=== PATIENT | male | born 1975 | race Caucasian/White ===

== ENCOUNTER 2021-01-26 01:32 | Inpatient (IN) | payer MEDICAID, SELFPAY ==
[2021-01-26] VITALS (7 sets, daily range): BP systolic 98–131; BP diastolic 65–89; PULSE 96–128; RESP 16–22; TEMP 36.5–37.7; O2SAT 95–98; BMI 22.7
--- NOTE | ~2021-01-26 | CT_ITS ---
EXAMINATION: CT HEAD WITHOUT CONTRAST CLINICAL INFORMATION: Hyponatremia COMPARISON: None TECHNIQUE: Contiguous axial imaging was performed from the skull base to vertex without intravenous administration of contrast. This CT examination was performed using dose optimization techniques as appropriate, variously including the following: *Automated exposure control *Adjustment of mA and/or kV according to patient size (this includes techniques or standardized protocols for targeted exams where dose is matched to indication/reason for exam; i.e. extremities or head) *Use of iterative reconstruction technique DLP: 646 mGy-cm FINDINGS: There is no evidence of acute intracranial hemorrhage or territorial infarction. No abnormal mass effect or midline shift is seen. Barnett to white matter differentiation is well preserved. No extra-axial fluid collections are identified. The ventricles are normal in size. There is no abnormal attenuation within the brain parenchyma. The osseous structures and soft tissues are normal. Skull and ligamentous thickening within the left maxillary sinus is partially imaged. Remainder of the paranasal sinuses are clear. CT/CT head/brain wo con IMPRESSION: No acute intracranial pathology.
[2021-01-26] MEDS: diphenhydrAMINE HCL 25 MG TABLET PO (02:19)
[2021-01-26] MEDS: OLANZapine 5 MG TABLET PO (02:19)
[2021-01-26 02:31] LABS: Basophils Percent Auto 0.2 % (0-2); Eosinophils Percent Auto 0.2 % (0-4); Hemoglobin 10.3 g/dl (14.0-18.0); Imm Gran Abs Auto 0.05 X10*3/uL (0.00-0.03); Imm Gran Pct Auto 0.8 % (0.0-0.4); Lymphocytes Absolute Auto 1.3 X10*3/uL (1.2-4.9); MANUAL DIFF FLAG NO; Mean Corpuscular HGB Conc 35.5 g/dl (31.0-36.0); Mean Corpuscular Hemoglobin 30.4 pg (27.0-33.0); Mean Corpuscular Volume 85.5 fL (80-98); Mean Platelet Volume 12.2 fL (9.4-12.4); Monocytes Absolute Auto 1.1 X10*3/uL (0.1-1.2); Monocytes Percent Auto 18.7 % (2-11); Neutrophils Absolute Auto 3.6 X10*3/uL (2.0-8.3); Neutrophils Percent Auto 59.1 % (45-73); Platelet Count 102 X10*3/uL (160-400); Red Blood Count 3.39 X10*6/uL (4.60-5.80); Red Cell Distribution Width 12.9 % (11.0-16.0); SCAN SMEAR FLAG 1; White Blood Count 6.1 X10*3/uL (4.8-10.8)
[2021-01-26 02:34] LABS: Glucose Urine UA NEG (NEG); Leukocyte Esterase Urine NEG (NEG); Nitrite Urine NEG (NEG); Urine Blood TRACE (NEG); Urine Ketones 15 MG/DL (NEG); Urine Protein TRACE MG/DL (NEG-TRACE)
--- NOTE | 2021-01-26 02:35 | PC.NURSE ---
Patient's thought process and content is very delusional, patient believes he is going to through seizing, requesting for either IV or IM medication help him fall sleep, patient was advised to start with PO medication first and if it doesn't help then move to IM, agreed, provider notified/ordered Olanzapine 5 mg PO and Benadryl 25 mg, administered as ordered, patient instead swallowing medication chewed it and stated he has difficult swallowing pills. Pending medication effect, will continue to monitor.
[2021-01-26 02:38] LABS: Appearance Urine CLEAR; Color Urine DARK YELLOW
[2021-01-26 02:48] LABS: COVID-19 Test Negative (Negative)
[2021-01-26 02:52] LABS: Ethanol < 10 mg/dL
[2021-01-26 02:53] LABS: Amphetamine Screen Urine Not Detected (Not Detect); Barbiturates, Urine Not Detected (Not Detect); Benzodiazepines Screen Urine Not Detected (Not Detect); Cannabinoid Screen Urine POSITIVE (Not Detect); Cocaine Screen Urine Not Detected (Not Detect); Opiate Screen Urine Not Detected (Not Detect); Phencyclidine Screen Urine Not Detected (Not Detect)
[2021-01-26 03:05] LABS: Alanine Aminotransferase 84 U/L (0-40); Albumin Level 3.1 g/dL (3.5-5.0); Alkaline Phosphatase 73 U/L (39-117); Anion Gap 13 (12-20); Aspartate Amino Transferase 70 U/L (5-37); Bilirubin Total 1.3 mg/dL (0.0-1.0); Blood Urea Nitrogen 18 mg/dL (9-16); Calcium 7.7 mg/dL (8.4-10.2); Carbon Dioxide 26 mmol/L (22-29); Chloride 89 mmol/L (96-108); Creatinine Clr Calc Pharmacy 110.7; Estimated Glomerular Filt Rate > 60; Glucose Random 122 mg/dL (60-115); Potassium 3.7 mmol/L (3.3-5.1); Sodium 123 mmol/L (135-145); Total Protein 6.5 g/dL (6.5-8.0)
[2021-01-26 03:08] LABS: RBC Urine 0-2 /HPF (0); Squamous Epithelial Cell Urine TRACE /LPF; WBC Urine 0-2 /HPF (0-4)
[2021-01-26] MEDS: 0.9 % Sodium Chloride 1,000 ML 999 ML IV (05:44)
--- NOTE | 2021-01-26 05:47 | ED_ITS ---
HPI - General Adult General Chief complaint: Psychiatric Symptoms Stated complaint: CRISIS:AFRAID TO SLEEP,WANTS TO HURT SELF X'S 1 WK Time Seen by Provider: 01/26/21 01:37 Source: patient Mode of arrival: EMS History of Present Illness HPI narrative: 45-year-old male who is brought in via EMS after he called the police department reported the in been able to sleep for over 2 weeks and patient states that he has vague suicidal thoughts because he has not been able to sleep. Patient states that a few days ago he stop smoking and drinking and states that since that time he has been drinking ?a lot of water?. Otherwise, he denies any fever, chills, shortness of breath, chest pain/palpitations, nausea, vomiting, diarrhea but states he has been having difficulties with swallowing to the point that he is unable to accommodate solid food and has had to switch to primarily protein shakes. Patient currently denies any audiovisual hallucinations or homicidal ideation. Patient describes that he has and also noticed throat that is rising up. Otherwise he denies AVH. Related Data Home Medications Medication Instructions Recorded Confirmed No Known Home Meds 01/26/21 01/26/21 Allergies Allergy/AdvReac Type Severity Reaction Status Date / Time No Known Allergies Allergy Unverified 01/26/21 01:37 Review of Systems Review of Systems: Pertinent positives and negatives as stated in HPI 10 point review systems is otherwise negative. PMFSH Past Medical History Source: nursing notes reviewed Medical History No known health problems Social History Social History Advance Directives: No Advance Directives Information Provided: No Physical Exam Vital Signs: Vital Signs: Last Vital Signs Temp 97.7 F 01/26/21 02:28 Pulse 110 H 01/26/21 05:45 Resp 22 H 01/26/21 05:45 BP 116/73 01/26/21 05:45 Pulse Ox 98 01/26/21 05:45 Body Mass Index 22.7 VITAL SIGNS: Reviewed. GENERAL: Well developed, well nourished, anxious. HEAD: Normocephalic/atraumatic EYES: PERRLA, EOMI without nystagmus EARS: Ext canals without abnormality, TMs non-bulging and non-erythematous NOSE: Nares patent bilateral OROPHARYNX: no oral lesions noted, posterior pharynx clear, dry mucosa NECK: Supple, no adenopathy LUNGS: Normal breath sounds. No adventitious sounds or accessory muscle use. SpO2<98> CARDIOVASCULAR: Regular rate and rhythm without noted murmurs, no JVD or lower extremity edema. ABDOMEN: Soft, non-tender, non-distended with bowel sounds. MUSCULOSKELETAL: No tenderness, deformities, or effusions noted on gross inspection. EXTREMITIES: No cyanosis, clubbing or edema. SKIN: Inspection of the skin reveals no rashes NEUROLOGIC: Alert and oriented x 4. Strength and sensation to light touch were grossly intact x 4, some tremulousness. Course Course Course Narrative: 45-year-old male with history and clinical presentation initially concerning for generalized thoughts of suicidal ideation and clinically dehydrated. On review of all investigation patient noted to be hyponatremic with liver enzymes suggestive of possible underlying liver disease given patient's history of alcohol dependency. On review of patient's hyponatremia it is most consistent with impaired water excretion. Patient is noted to be tachycardic a nd it is not clear if this is due to patient's volume status, possible alcohol withdrawal, but patient is also noted to be mildly anemic. Discussed the case with inpatient hospitalist who is agreeable for admission and awaiting callback for Nephrology. Reevaluation(s) [facility]: 07:25 Medical Decision Making Lab Data Result diagrams: 01/26/21 02:24 01/26/21 02:24 Labs: Lab Results 01/26/21 01/26/21 01/26/21 Range/Units 01:57 01:58 01:58 WBC (4.8-10.8) X10*3/uL RBC (4.60-5.80) X10*6/uL Hgb (14.0-18.0) g/dl Hct (42-52) % MCV (80-98) fL MCH (27.0-33.0) pg MCHC (31.0-36.0) g/dl RDW (11.0-16.0) % Plt Count (160-400) X10*3/uL MPV (9.4-12.4) fL Immature Gran % (Auto) (0.0-0.4) % Neut % (Auto) (45-73) % Lymph % (Auto) (20-40) % [place] % (Auto) (2-11) % Eos % (Auto) (0-4) % Baso % (Auto) (0-2) % Lymph # (Auto) (1.2-4.9) X10*3/uL [place] # (Auto) (0.1-1.2) X10*3/uL Eos # (Auto) (0.0-0.4) X10*3/uL Baso # (Auto) (0.0-0.2) X10*3/uL Abs Immat Gran (auto) (0.00-0.03) X10*3/uL Absolute Neuts (auto) (2.0-8.3) X10*3/uL Absolute Nucleated RBC (0.0-0.012) X10*3/uL Nucleated RBC % (auto) (0.0-0.2) /100WBC Sodium (135-145) mmol/L Potassium (3.3-5.1) mmol/L Chloride (96-108) mmol/L Carbon Dioxide (22-29) mmol/L Anion Gap (12-20) BUN (9-16) mg/dL Creatinine (0.5-1.4) mg/dL Estim Creat Clear Calc Estimated GFR Random Glucose (60-115) mg/dL Osmolality (281-305) mosm/kg Calcium (8.4-10.2) mg/dL Total Bilirubin (0.0-1.0) mg/dL AST (5-37) U/L ALT (0-40) U/L Alkaline Phosphatase (39-117) U/L Total Protein (6.5-8.0) g/dL Albumin (3.5-5.0) g/dL Urine Color DARK YELLOW Urine Appearance CLEAR Urine pH 6.0 (5.0-8.0) Ur Specific [place] 1.020 (1.005-1.025) Urine Protein TRACE (NEG-TRACE) MG/DL Urine Glucose (UA) NEG (NEG) MG/DL Urine Ketones 15 (NEG) MG/DL Urine Blood TRACE (NEG) Urine Nitrite NEG (NEG) Ur Leukocyte Esterase NEG (NEG) Urine RBC 0-2 (0) /HPF Urine WBC 0-2 (0-4) /HPF Ur Squamous Epith Cells TRACE /LPF Urine Bacteria NONE /LPF Urine Osmolality (373-1093) mosm/kg Ur Random Sodium mmol/L Urine Opiates Screen Not Detected (Not Detect) Ur Barbiturates Screen Not Detected (Not Detect) Ur Phencyclidine Scrn Not Detected (Not Detect) Ur Amphetamines Screen Not Detected (Not Detect) U Benzodiazepines Scrn Not Detected (Not Detect) Urine Cocaine Screen Not Detected (Not Detect) U Marijuana (THC) Screen POSITIVE H (Not Detect) Ethyl Alcohol mg/dL COVID-19 (GABY) Negative (Negative) COVID-19 Clin Com See Note 01/26/21 01/26/21 01/26/21 Range/Units 01:58 01:58 02:24 WBC 6.1 (4.8-10.8) X10*3/uL RBC 3.39 L (4.60-5.80) X10*6/uL Hgb 10.3 L (14.0-18.0) g/dl Hct 29.0 L (42-52) % MCV 85.5 (80-98) fL MCH 30.4 (27.0-33.0) pg MCHC 35.5 (31.0-36.0) g/dl RDW 12.9 (11.0-16.0) % Plt Count 102 L (160-400) X10*3/uL MPV 12.2 (9.4-12.4) fL Immature Gran % (Auto) 0.8 H (0.0-0.4) % Neut % (Auto) 59.1 (45-73) % Lymph % (Auto) 21.0 (20-40) % [place] % (Auto) 18.7 H (2-11) % Eos % (Auto) 0.2 (0-4) % Baso % (Auto) 0.2 (0-2) % Lymph # (Auto) 1.3 (1.2-4.9) X10*3/uL [place] # (Auto) 1.1 (0.1-1.2) X10*3/uL Eos # (Auto) 0.0 (0.0-0.4) X10*3/uL Baso # (Auto) 0.0 (0.0-0.2) X10*3/uL Abs Immat Gran (auto) 0.05 H (0.00-0.03) X10*3/uL Absolute Neuts (auto) 3.6 (2.0-8.3) X10*3/uL Absolute Nucleated RBC 0.000 (0.0-0.012) X10*3/uL Nucleated RBC % (auto) 0.0 (0.0-0.2) /100WBC Sodium (135-145) mmol/L Potassium (3.3-5.1) mmol/L Chloride (96-108) mmol/L Carbon Dioxide (22-29) mmol/L Anion Gap (12-20) BUN (9-16) mg/dL Creatinine (0.5-1.4) mg/dL Estim Creat Clear Calc Estimated GFR Random Glucose (60-115) mg/dL Osmolality (281-305) mosm/kg Calcium (8.4-10.2) mg/dL Total Bilirubin (0.0-1.0) mg/dL AST (5-37) U/L ALT (0-40) U/L Alkaline Phosphatase (39-117) U/L Total Protein (6.5-8.0) g/dL Albumin (3.5-5.0) g/dL Urine Color Urine Appearance Urine pH (5.0-8.0) Ur Specific [place] (1.005-1.025) Urine Protein (NEG-TRACE) MG/DL Urine Glucose (UA) (NEG) MG/DL Urine Ketones (NEG) MG/DL Urine Blood (NEG) Urine Nitrite (NEG) Ur Leukocyte Esterase (NEG) Urine RBC (0) /HPF Urine WBC (0-4) /HPF Ur Squamous Epith Cells /LPF Urine Bacteria /LPF Urine Osmolality 557 (373-1093) mosm/kg Ur Random Sodium < 20.0 mmol/L Urine Opiates Screen (Not Detect) Ur Barbiturates Screen (Not Detect) Ur Phencyclidine Scrn (Not Detect) Ur Amphetamines Screen (Not Detect) U Benzodiazepines Scrn (Not Detect) Urine Cocaine Screen (Not Detect) U Marijuana (THC) Screen (Not Detect) Ethyl Alcohol mg/dL COVID-19 (GABY) (Negative) COVID-19 Clin Com 01/26/21 01/26/21 01/26/21 Range/Units 02:24 02:24 02:24 WBC (4.8-10.8) X10*3/uL RBC (4.60-5.80) X10*6/uL Hgb (14.0-18.0) g/dl Hct (42-52) % MCV (80-98) fL MCH (27.0-33.0) pg MCHC (31.0-36.0) g/dl RDW (11.0-16.0) % Plt Count (160-400) X10*3/uL MPV (9.4-12.4) fL Immature Gran % (Auto) (0.0-0.4) % Neut % (Auto) (45-73) % Lymph % (Auto) (20-40) % [place] % (Auto) (2-11) % Eos % (Auto) (0-4) % Baso % (Auto) (0-2) % Lymph # (Auto) (1.2-4.9) X10*3/uL [place] # (Auto) (0.1-1.2) X10*3/uL Eos # (Auto) (0.0-0.4) X10*3/uL Baso # (Auto) (0.0-0.2) X10*3/uL Abs Immat Gran (auto) (0.00-0.03) X10*3/uL Absolute Neuts (auto) (2.0-8.3) X10*3/uL Absolute Nucleated RBC (0.0-0.012) X10*3/uL Nucleated RBC % (auto) (0.0-0.2) /100WBC Sodium 123 L (135-145) mmol/L Potassium 3.7 (3.3-5.1) mmol/L Chloride 89 L (96-108) mmol/L Carbon Dioxide 26 (22-29) mmol/L Anion Gap 13 (12-20) BUN 18 H (9-16) mg/dL Creatinine 0.80 (0.5-1.4) mg/dL Estim Creat Clear Calc 110.7 Estimated GFR > 60 Random Glucose 122 H (60-115) mg/dL Osmolality 258 L (281-305) mosm/kg Calcium 7.7 L (8.4-10.2) mg/dL Total Bilirubin 1.3 H (0.0-1.0) mg/dL AST 70 H (5-37) U/L ALT 84 H (0-40) U/L Alkaline Phosphatase 73 (39-117) U/L Total Protein 6.5 (6.5-8.0) g/dL Albumin 3.1 L (3.5-5.0) g/dL Urine Color Urine Appearance Urine pH (5.0-8.0) Ur Specific [place] (1.005-1.025) Urine Protein (NEG-TRACE) MG/DL Urine Glucose (UA) (NEG) MG/DL Urine Ketones (NEG) MG/DL Urine Blood (NEG) Urine Nitrite (NEG) Ur Leukocyte Esterase (NEG) Urine RBC (0) /HPF Urine WBC (0-4) /HPF Ur Squamous Epith Cells /LPF Urine Bacteria /LPF Urine Osmolality (373-1093) mosm/kg Ur Random Sodium mmol/L Urine Opiates Screen (Not Detect) Ur Barbiturates Screen (Not Detect) Ur Phencyclidine Scrn (Not Detect) Ur Amphetamines Screen (Not Detect) U Benzodiazepines Scrn (Not Detect) Urine Cocaine Screen (Not Detect) U Marijuana (THC) Screen (Not Detect) Ethyl Alcohol < 10 mg/dL COVID-19 (GABY) (Negative) COVID-19 Clin Com Discharge Plan Discharge Clinical Impression: Hyponatremia, Psychosis Patient Disposition: Admitted As Inpatient
[2021-01-26] MEDS: 0.9 % Sodium Chloride 1,000 ML 80 ML IVCONT (05:52)
[2021-01-26 06:04] LABS: Osmolality Urine 557 mosm/kg (373-1093)
[2021-01-26 06:05] LABS: Osmolality, Serum 258 mosm/kg (281-305)
[2021-01-26 07:47] LABS: Sodium Urine Random < 20.0 mmol/L
--- NOTE | 2021-01-26 07:50 | PHA.MEDREC ---
Pharmacy Consult ? Medication Reconciliation Pharmacy has completed the medication reconciliation.
--- NOTE | 2021-01-26 08:57 | PM.IMHP ---
History of Present Illness Date of Service: 01/26/21 Chief Complaint: insomonia, SI 45 year old male with chronic alcohol depedency who says that he stop drinking about a week ago, altugh at some point he says 4 days ago. He has been having trouble sleeping for about week and becoming agitated, hypervigilent and has had suicidal thought. He says during that time perioids he has been drinking water incesantly. Lab work show sodium of 123 and started on normal saline, he's anemic but denies melana or hematochezia. Review of Systems Review of Systems: Gen: no fever Resp: no sob, no cough CV: no chest, no VINCENT, no leg edema GI: No n/v, no abd pain Neuro: No confusion Psych: insominia, hypervigilenc Yes all other systems are reviewed and are negative ON LICENSE OF [facility] Medical History (Updated 01/26/21 @ 09:02 by Pipe Trejo MD) Alcohol dependence No known health problems Social History (Updated 01/26/21 @ 09:03 by Pipe Trejo MD) Alcohol intake: current Patient Tobacco Use Status: Former Tobacco user Use of substances other than those prescribed or required for medical reasons: No Substance Use Type: Marijuana Substance Use Frequency: Daily Advance Directives: No Advance Directives Information Provided: No Meds Allergies Allergy/AdvReac Type Severity Reaction Status Date / Time No Known Allergies Allergy Unverified 01/26/21 01:37 Active Medications: Current Medications Generic Name Dose Route Start Last Admin Trade Name Freq PRN Reason Stop Dose Admin Acetaminophen 650 mg 01/26/21 08:50 Acetaminophen 325 Mg Tablet PO Q6H PRN Pain, Mild (Pain Scale 1-3) Sodium Chloride 1,000 mls @ 80 mls/hr 01/26/21 06:00 01/26/21 05:52 Ns IVCONT 80 mls/hr .[id number] GISEL Administration Medication 1 each 01/26/21 09:00 No Benzodiazepines MISCELLANE DAILY GISEL Ondansetron HCl 4 mg 01/26/21 08:50 Ondansetron Hcl 4 Mg/2 Ml Vial IVPUSH Q8H PRN Nausea and Vomiting Pharmacy Consult 1 each 01/26/21 07:06 Consult Rx Perform Med Rec MISCELLANE ONCE PRN Consult order Pharmacy Consult 1 each 01/26/21 08:49 Consult Rx Etoh Phenob Dosing MISCELLANE 01/26/21 08:50 ONCE ONE Protocol Phenobarbital Sodium 210 mg 01/26/21 09:00 Phenobarbital Sodium 130 Mg/Ml Vial IM 01/26/21 09:01 ONCE ONE Protocol Sodium Chloride 3 ml 01/26/21 16:00 0.9 % Sodium Chloride Flush 3 Ml [facility] Home Medications Medication Instructions Recorded Confirmed Last Taken Type No Known Home Meds 01/26/21 01/26/21 Unknown History Physical Exam Vital Signs and Narrative: Vital Signs: Last Vital Signs Temp 97.7 F 01/26/21 02:28 Pulse 110 H 01/26/21 05:45 Resp 22 H 01/26/21 05:45 BP 116/73 01/26/21 05:45 Pulse Ox 98 01/26/21 05:45 Body Mass Index 22.7 Const: Other: Constitutional Awake and Alert, No apparent distress Neck Supple, No lymphadenopathy Cardiovascular RRR, No M/R/G, S1 S2, No S3 S4, No pedal edema Respiratory Lungs clear, No respiratory distress Gastrointestinal Non tender, Non-distended Skin No rash Neurological Alert & oriented x3 Psychological hypervigilence, no hallucination, Denies SI to me Results Labs CBC and Chem 7: 01/26/21 02:24 01/26/21 11:19 Labs: Laboratory Results - last 24 hr 01/26/21 01/26/21 01/26/21 01:57 01:58 01:58 MCV MCH MCHC RDW Plt Count MPV Immature Gran % (Auto) Neut % (Auto) Lymph % (Auto) [place] % (Auto) Eos % (Auto) Baso % (Auto) Lymph # (Auto) [place] # (Auto) Eos # (Auto) Baso # (Auto) Abs Immat Gran (auto) Absolute Neuts (auto) Absolute Nucleated RBC Nucleated RBC % (auto) Anion Gap Estim Creat Clear Calc Estimated GFR Random Glucose Osmolality Calcium Total Bilirubin AST ALT Alkaline Phosphatase Total Protein Albumin Urine Color DARK YELLOW Urine Appearance CLEAR Urine pH 6.0 Ur Specific [place] 1.020 Urine Protein TRACE Urine Glucose (UA) NEG Urine Ketones 15 Urine Blood TRACE Urine Nitrite NEG Ur Leukocyte Esterase NEG Urine RBC 0-2 Urine WBC 0-2 Ur Squamous Epith Cells TRACE Urine Bacteria NONE Urine Osmolality Ur Random Sodium Urine Opiates Screen Not Detected Ur Barbiturates Screen Not Detected Ur Phencyclidine Scrn Not Detected Ur Amphetamines Screen Not Detected U Benzodiazepines Scrn Not Detected Urine Cocaine Screen Not Detected U Marijuana (THC) Screen POSITIVE H Ethyl Alcohol COVID-19 (GABY) Negative COVID-19 Clin Com See Note 01/26/21 01/26/21 01/26/21 01:58 01:58 02:24 MCV 85.5 MCH 30.4 MCHC 35.5 RDW 12.9 Plt Count 102 L MPV 12.2 Immature Gran % (Auto) 0.8 H Neut % (Auto) 59.1 Lymph % (Auto) 21.0 [place] % (Auto) 18.7 H Eos % (Auto) 0.2 Baso % (Auto) 0.2 Lymph # (Auto) 1.3 [place] # (Auto) 1.1 Eos # (Auto) 0.0 Baso # (Auto) 0.0 Abs Immat Gran (auto) 0.05 H Absolute Neuts (auto) 3.6 Absolute Nucleated RBC 0.000 Nucleated RBC % (auto) 0.0 Anion Gap Estim Creat Clear Calc Estimated GFR Random Glucose Osmolality Calcium Total Bilirubin AST ALT Alkaline Phosphatase Total Protein Albumin Urine Color Urine Appearance Urine pH Ur Specific [place] Urine Protein Urine Glucose (UA) Urine Ketones Urine Blood Urine Nitrite Ur Leukocyte Esterase Urine RBC Urine WBC Ur Squamous Epith Cells Urine Bacteria Urine Osmolality 557 Ur Random Sodium < 20.0 Urine Opiates Screen Ur Barbiturates Screen Ur Phencyclidine Scrn Ur Amphetamines Screen U Benzodiazepines Scrn Urine Cocaine Screen U Marijuana (THC) Screen Ethyl Alcohol COVID-19 (GABY) COVID-19 Clin Com 01/26/21 01/26/21 01/26/21 02:24 02:24 02:24 MCV MCH MCHC RDW Plt Count MPV Immature Gran % (Auto) Neut % (Auto) Lymph % (Auto) [place] % (Auto) Eos % (Auto) Baso % (Auto) Lymph # (Auto) [place] # (Auto) Eos # (Auto) Baso # (Auto) Abs Immat Gran (auto) Absolute Neuts (auto) Absolute Nucleated RBC Nucleated RBC % (auto) Anion Gap 13 Estim Creat Clear Calc 110.7 Estimated GFR > 60 Random Glucose 122 H Osmolality 258 L Calcium 7.7 L Total Bilirubin 1.3 H AST 70 H ALT 84 H Alkaline Phosphatase 73 Total Protein 6.5 Albumin 3.1 L Urine Color Urine Appearance Urine pH Ur Specific [place] Urine Protein Urine Glucose (UA) Urine Ketones Urine Blood Urine Nitrite Ur Leukocyte Esterase Urine RBC Urine WBC Ur Squamous Epith Cells Urine Bacteria Urine Osmolality Ur Random Sodium Urine Opiates Screen Ur Barbiturates Screen Ur Phencyclidine Scrn Ur Amphetamines Screen U Benzodiazepines Scrn Urine Cocaine Screen U Marijuana (THC) Screen Ethyl Alcohol < 10 COVID-19 (GABY) COVID-19 Clin Com Imaging Radiologist's Impressions: Impressions Head CT 01/26/21 06:06 IMPRESSION: No acute intracranial pathology. 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 underlying Psychosis--MARIANA Abdi, Psych eval when medically stable low risk for DVT, ambulate Quality Stroke Does the patient have a stroke diagnosis?: No VTE Prior VTE?: No VTE Risk Level:: Medical - low VTE Device Contraindication: N/A - Device Ordered VTE Drug Contraindication: N/A - Med Ordered
[2021-01-26 09:10] LABS: Magnesium 2.2 mg/dL (1.6-2.6)
--- NOTE | 2021-01-26 09:10 | MHC.CARE ---
Please consult CARE Team once pt is medically cleared and ready for discharge or transfer. CARE Team will conduct assessment or refer to [facility]N as appropriate.
[2021-01-26 09:52] LABS: Thyroid Stimulating Hormone 1.02 uIU/mL (0.32-4.0)
[2021-01-26] MEDS: Folic Acid 1 MG TABLET PO (10:07)
[2021-01-26] MEDS: Thiamine HCL 500 MG in 0.9 % Sodium Chloride 100 ML 210 MG IV (10:09)
[2021-01-26] MEDS: PHENobarbitaL sodium 130 MG/ML VIAL 210 MG IM (10:11)
[2021-01-26 10:18] LABS: Vitamin B12 1722 pg/mL (200-900)
[2021-01-26 10:54] LABS: Anion Gap 11 (12-20); Carbon Dioxide 25 mmol/L (22-29); Chloride 98 mmol/L (96-108); Potassium 4.4 mmol/L (3.3-5.1); Sodium 130 mmol/L (135-145)
[2021-01-26 11:53] LABS: Anion Gap 10 (12-20); Carbon Dioxide 28 mmol/L (22-29); Chloride 96 mmol/L (96-108); Potassium 4.1 mmol/L (3.3-5.1); Sodium 130 mmol/L (135-145)
[2021-01-26] MEDS: PHENobarbitaL sodium 130 MG/ML VIAL 157 MG IM ×2 (12:07→21:07)
--- NOTE | 2021-01-26 12:15 | PM.EVENT ---
Event Note Date of Service: 01/26/21 Event Note: Pt seen and examined in the ER Hyponatremia _ Euvolemic - ? Multifactorial ? SIADH ( Low U Na not c/w SIADH but + ? Excess Free water intake ) TSH normal Will check Cortisol Level in AM Fluid restriction D/c IVF as NA is 130 x 2 now Will start D5W 100 ml x 5000 ml Na level Q 6 hrly x 24 hrs Normal Na diet thx
--- NOTE | 2021-01-26 13:10 | PC.NURSE ---
called pharmacy to clarify the dextrose 5% order because the current order states to infuse 1000ml over 10hr but on the side it also states 500ml, and when scanning the 1000ml it says its over 500ml. pharmacy reached out dr soto's office to clarify the order. awaiting a call back from pharmacy
[2021-01-26] MEDS: Dextrose 5 % 500 ML 100 ML IVCONT (15:37)
--- NOTE | 2021-01-26 16:10 | PC.NURSE ---
pt has been refusing the second phenobarbital injection, mom and dad at bedside
[2021-01-26 16:34] LABS: Anion Gap 10 (12-20); Carbon Dioxide 27 mmol/L (22-29); Chloride 96 mmol/L (96-108); Sodium 129 mmol/L (135-145)
[2021-01-26] MEDS: 0.9 % Sodium Chloride Flush 3 ML SYRINGE IVFLUSH ×2 (16:51→23:54)
--- NOTE | 2021-01-26 17:11 | CONS_ITS ---
DATE OF SERVICE: REASON FOR CONSULTATION: Consult requested by the ER team to evaluate and help in management of patient with hyponatremia. HISTORY OF PRESENT ILLNESS: The patient is a 45-year-old male with chronic alcohol dependency, who stated he stopped drinking about a week ago, although it is unclear when he stopped, who has been having trouble sleeping for about a week and became agitated, hypervigilant, and a suicidal thought. He has been drinking free water significantly as he felt that there was some obstructive symptoms in the throat. His lab work showed his sodium level was 123 and started on normal saline. He was anemic, but denied any melena or hematochezia. He does not take any medication at home and has no urinary symptoms. There is no GI fluid losses like diarrhea, nausea, or vomiting. There is no cough, chest pain, palpitation. A head CT was done, which was negative for any acute changes in the ER. REVIEW OF SYSTEMS: As noted above. Other systems were reviewed and negative. PAST MEDICAL HISTORY: History of alcohol dependence. No other health problems. SOCIAL HISTORY: The patient is a current alcohol user. As mentioned before, he stopped about a week ago. Currently a smoker. ALLERGIES: THE PATIENT HAS NO KNOWN DRUG ALLERGIES. PHYSICAL EXAMINATION: GENERAL: The patient is resting in the ER bed. Awake, alert, oriented x3. VITAL SIGNS: Blood pressure was 116/73, pulse 110, afebrile. HEENT: Shows pupils equal bilaterally and reactive to light. No jugular venous distention is noted. NECK: Supple. No thyromegaly is noted. Mucosa moist. There is no scleral icterus or conjunctival congestion. CARDIOVASCULAR SYSTEM: S1, S2 without rub. RESPIRATORY SYSTEM: Air entry good bilaterally. No crepitation or rhonchi is noted. ABDOMEN: Soft, nontender. No guarding. No rigidity. Bowel sounds normal. EXTREMITIES: Showed no edema. There is no peripheral cyanosis or clubbing. NEURO: Essentially nonfocal. LABORATORY DATA: Labs done today. Urinalysis, clear urine, specific gravity 1.020, protein trace, glucose negative, rbc's and wbc's were negative. Urine osmolality was 557. Urine sodium was less than 20. Serum sodium was 123, potassium 3.7, chloride 89, CO2 of 26, BUN 18, creatinine 0.8, glucose is 122. Serum osmolality 258. Albumin 3.1. Repeat sodium done was 130. Urine tox screen, marijuana was positive and alcohol was less than 10. IMPRESSION: 1. A 45-year-old male with hyponatremia. He has neurological symptoms associated with hyponatremia given confusion. He has hypo-osmolar hyponatremia. 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 It is unclear if this is worsened by low solute diet and increase free water intake as he stopped drinking alcohol and had some throat issues, which caused him to drink more free water. TSH is normal and need to rule out thyroid disease. 2. Anemia. 3. Alcohol withdrawal. RECOMMENDATIONS: At this juncture, I recommend fluid restriction of 1.5 L per day. His sodium level has increased rapidly to 130 and I have taken the liberty to discontinue his IV fluids/normal saline. I have initiated the patient on D5 water at 100 mL/hour times 500 mL with a repeat sodium level in a few hours. I recommend correcting not more than 6 to 8 mEq over a period of 24 hours. Given neurological symptoms, 4 mEq can be corrected rapidly, but after that, we need to be cautious. I recommend doing the serum sodium levels every 6 hours on this patient. Thank you for allowing me to participate in the medical management of the patient. MD LILLIAN Kendall/GABINO / [phone]
--- NOTE | 2021-01-26 18:15 | PC.NURSE ---
pt is currently asleep, respirations even and unlabored
--- NOTE | 2021-01-26 20:01 | PC.NURSE ---
REPORT TAKEN FROM NICKY WHITTAKER FIRST CONTACTWITH PT. SITTING UP IN BED SKIN PWD RESPIRATIONS EVEN UNLABORED. A&Ox4, SLIGHTLY HYPERVERBAL YET PLEASANT AND AGREEABLE WITH CARE. SINUS TACH ON MONITOR. NEW IV ACCESS OBTAINED DUE TO PT CONTINUALLY BENDING LEFT ELBOW OCCLUDING CONTINUOUS INFUSION. CALL TO PHARMACY FOR REASSESSMENT OF PHENOBARB PROTOCOL DUE TO LAST DOSE NOT ADMINISTERED BY PREVIOUS RN.
[2021-01-27 07:06] VITALS: BP 105/71; PULSE 104; RESP 18; TEMP 36.4; O2SAT 94
[2021-01-27 08:30] LABS: Hematocrit 27.7 % (42-52); Hemoglobin 9.4 g/dl (14.0-18.0); Mean Corpuscular HGB Conc 33.9 g/dl (31.0-36.0); Mean Corpuscular Volume 88.5 fL (80-98); Mean Platelet Volume 11.3 fL (9.4-12.4); Platelet Count 132 X10*3/uL (160-400); Red Blood Count 3.13 X10*6/uL (4.60-5.80); Red Cell Distribution Width 13.5 % (11.0-16.0); White Blood Count 5.5 X10*3/uL (4.8-10.8)
[2021-01-27 08:45] LABS: Magnesium 2.3 mg/dL (1.6-2.6)
[2021-01-27] MEDS: PHENobarbitaL 15 MG TABLET 45 MG PO ×2 (09:15→20:39)
[2021-01-27] MEDS: Folic Acid 1 MG TABLET PO (09:15)
[2021-01-27] MEDS: Thiamine HCL 100 MG TABLET PO (09:16)
[2021-01-27] MEDS: 0.9 % Sodium Chloride Flush 3 ML SYRINGE IVFLUSH ×3 (09:16→20:39)
--- NOTE | 2021-01-27 10:14 | MHC.CM.PN ---
met with pt who has a siitter dc plan is home with a referral to care team for his etoh abuse
[2021-01-27 10:29] LABS: Anion Gap 12 (12-20); Blood Urea Nitrogen 13 mg/dL (9-16); Calcium 7.3 mg/dL (8.4-10.2); Carbon Dioxide 26 mmol/L (22-29); Chloride 94 mmol/L (96-108); Creatinine Clr Calc Pharmacy 97.3; Estimated Glomerular Filt Rate > 60; Glucose Random 157 mg/dL (60-115); Potassium 3.8 mmol/L (3.3-5.1); Sodium 128 mmol/L (135-145)
--- NOTE | 2021-01-27 11:03 | PM.PNNEP ---
Subjective Subjective Date of Service: 01/27/21 Interval history: pt feels better Less anxious Physical Exam Vital Signs: Vital Signs: Last Vital Signs Temp 97.6 F 01/27/21 07:06 Pulse 104 H 01/27/21 07:06 Resp 18 01/27/21 07:06 BP 105/71 01/27/21 07:06 Pulse Ox 94 01/27/21 07:06 Body Mass Index 22.7 VITAL SIGNS: Reviewed. GENERAL: Well developed, well nourished, anxious. HEAD: Normocephalic/atraumatic EYES: PERRLA, EOMI without nystagmus EARS: Ext canals without abnormality, TMs non-bulging and non-erythematous NOSE: Nares patent bilateral OROPHARYNX: no oral lesions noted, posterior pharynx clear, dry mucosa NECK: Supple, no adenopathy LUNGS: Normal breath sounds. No adventitious sounds or accessory muscle use. SpO2<98> CARDIOVASCULAR: Regular rate and rhythm without noted murmurs, no JVD or lower extremity edema. ABDOMEN: Soft, non-tender, non-distended with bowel sounds. MUSCULOSKELETAL: No tenderness, deformities, or effusions noted on gross inspection. EXTREMITIES: No cyanosis, clubbing or edema. SKIN: Inspection of the skin reveals no rashes NEUROLOGIC: Alert and oriented x 4. Strength and sensation to light touch were grossly intact x 4, some tremulousness. Objective Data Labs CBC & Chem 7: 01/27/21 07:56 01/27/21 09:57 Labs: Laboratory Results - last 24 hr 01/26/21 01/26/21 01/27/21 11:19 16:00 07:56 WBC 5.5 RBC 3.13 L Hgb 9.4 L Hct 27.7 L MCV 88.5 MCH 30.0 MCHC 33.9 RDW 13.5 Plt Count 132 L D MPV 11.3 Absolute Nucleated RBC 0.000 Nucleated RBC % (auto) 0.0 Sodium 130 L 129 L Potassium 4.1 4.0 Chloride 96 96 Carbon Dioxide 28 27 Anion Gap 10 L 10 L BUN Creatinine Estim Creat Clear Calc Estimated GFR Random Glucose Calcium Magnesium 01/27/21 01/27/21 07:56 09:57 WBC RBC Hgb Hct MCV MCH MCHC RDW Plt Count MPV Absolute Nucleated RBC Nucleated RBC % (auto) Sodium 128 L Potassium 3.8 Chloride 94 L Carbon Dioxide 26 Anion Gap 12 BUN 13 Creatinine 0.91 Estim Creat Clear Calc 97.3 Estimated GFR > 60 Random Glucose 157 H Calcium 7.3 L Magnesium 2.3 Procedures Date of Service Date of Service: 01/27/21 Assessment & Plan Time Spent With Patient Time: IMPRESSION:? 1. A 45-year-old male with hyponatremia.? He has neurological symptoms associated with hyponatremia given confusion.? He has hypo-osmolar hyponatremia.? Urine osmolality is inappropriately concentrated for serum osmolality and serum sodium + this is worsened by low solute diet and increase free water intake as he stopped drinking alcohol and had some throat issues, which caused him to drink more free water.? TSH is normal and cortisol is pending 2. Anemia. 3. Alcohol withdrawal. ? RECOMMENDATIONS:? Continue fluid restriction of 1.5 L per day.? His sodium level has increased appropriately Avoid alcohol - d/w pt NACL tabs 1 G TID ordered x 3 doses ? I recommend doing the serum sodium levels every 12 hours x 24 hrs F/u Cortisol level ?D/w Medical team Thank you for allowing me to participate in the medical management of the patient. Total time spent is greater than 50% in coordination of care (as documented) at patient's floor/unit and/or counseling patient: Progress Note: Quality Stroke Does the patient have a stroke diagnosis?: No
[2021-01-27 11:20] VITALS: BP 108/64; PULSE 99; RESP 16; TEMP 36.6; O2SAT 97
--- NOTE | 2021-01-27 12:53 | P.CDIC_ITS ---
CDI Concurrent Query Service Date: 01/28/21 Documentation Clarification: Please clarify if you are treating a proba ble/suspected/likely or confirmed: known or suspected type of the documented encephalopathy: - Metabolic - Septic - Toxic - Toxic metabolic - Hypertensive - Anoxic - Alcoholic - Hepatic (reported as hepatic failure and needs further specificity as to acute, subacute, or chronic) - Due to a specified condition (such as UTI, hyponatremia, CVA, etc.) - Other (please specify): - Unable to determine Provider Response: Other Other Diagnosis: No encephalopathy PLEASE DO NOT DELETE/MODIFY EXISTING CONTENT Additional information is needed in order to code to the highest accuracy and appropriate Severity of Illness (SOI). Please clarify the information noted below in your progress notes and discharge summary. Risk Factors/Clinical Indicators/Treatments Per progress note 12/2820: he has neurological symptoms associated with hyponatremia given confusion Per H&P: Suicide ideation/? underlying psychosis CDS: Holly Gold RN Contact Number: [phone] Please Review the information above and exercise your independent professional judgment in responding to the query. If you concur, pleas document in the PROGRESS NOTES and DISCHARGE SUMMARY. If you do not agree with the query, please document in the query above. THIS QUERY IS PART OF THE PERMANENT MEDICAL RECORD
[2021-01-27] MEDS: Sodium Chloride Tab 1 GM TABLET PO ×2 (14:31→20:39)
[2021-01-27 15:25] VITALS: BP 90/68; PULSE 105; RESP 18; TEMP 37.1; O2SAT 97
[2021-01-27 16:08] VITALS: BP 103/60
[2021-01-27 23:02] VITALS: BP 98/62; PULSE 108; RESP 18; TEMP 36.5; O2SAT 95
[2021-01-28 07:19] VITALS: BP 110/66; PULSE 99; RESP 18; TEMP 37; O2SAT 97
[2021-01-28] MEDS: Sodium Chloride Tab 1 GM TABLET PO ×2 (08:40→14:11)
[2021-01-28] MEDS: Folic Acid 1 MG TABLET PO (08:40)
[2021-01-28] MEDS: PHENobarbitaL 15 MG TABLET 45 MG PO (08:41)
[2021-01-28] MEDS: Thiamine HCL 100 MG TABLET PO (08:41)
[2021-01-28] MEDS: 0.9 % Sodium Chloride Flush 3 ML SYRINGE IVFLUSH (08:42)
[2021-01-28 09:29] LABS: Anion Gap 9 (12-20); Blood Urea Nitrogen 14 mg/dL (9-16); Calcium 7.6 mg/dL (8.4-10.2); Carbon Dioxide 27 mmol/L (22-29); Chloride 98 mmol/L (96-108); Creatinine Clr Calc Pharmacy 104.2; Estimated Glomerular Filt Rate > 60; Glucose Random 140 mg/dL (60-115); Potassium 3.9 mmol/L (3.3-5.1); Sodium 130 mmol/L (135-145)
--- NOTE | 2021-01-28 09:51 | HO.PM.IMPN ---
Subjective Subjective Date of Service: 01/28/21 Interval History: Feels better, No SI, sodium 130 Review of Systems Gen: no fever Resp: no sob, no cough CV: no chest, no VINCENT, no leg edema GI: No n/v, no abd pain Neuro: No confusion Psych: insominia, hypervigilenc Physical Exam Vital Signs: Vital Signs: Last Vital Signs Temp 98.6 F 01/28/21 07:19 Pulse 99 01/28/21 07:19 Resp 18 01/28/21 07:19 BP 110/66 01/28/21 07:19 Pulse Ox 97 01/28/21 07:19 Body Mass Index 22.7 Const: Other: Constitutional Awake and Alert, No apparent distress Neck Supple, No lymphadenopathy Cardiovascular RRR, No M/R/G, S1 S2, No S3 S4, No pedal edema Respiratory Lungs clear, No respiratory distress Gastrointestinal Non tender, Non-distended Skin No rash Neurological Alert & oriented x3 Psychological hypervigilence, no hallucination, Denies SI to me Objective Data Current Medications Generic Name Dose Route Start Last Admin Trade Name Freq PRN Reason Stop Dose Admin Acetaminophen 650 mg 01/26/21 08:50 Acetaminophen 325 Mg Tablet PO Q6H PRN Pain, Mild (Pain Scale 1-3) Medication 1 each 01/26/21 09:00 No Benzodiazepines MISCELLANE DAILY GISEL Ondansetron HCl 4 mg 01/26/21 08:50 Ondansetron Hcl 4 Mg/2 Ml Vial IVPUSH Q8H PRN Nausea and Vomiting Pharmacy Consult 1 each 01/26/21 07:06 Consult Rx Perform Med Rec MISCELLANE ONCE PRN Consult order Phenobarbital 45 mg 01/27/21 09:00 01/28/21 08:41 Phenobarbital 15 Mg Tablet PO 01/28/21 21:01 45 mg BID GISEL Administration Protocol Phenobarbital 30 mg 01/29/21 09:00 Phenobarbital 30 Mg Tablet PO 01/30/21 21:01 BID GISEL Protocol Phenobarbital 15 mg 01/31/21 09:00 Phenobarbital 15 Mg Tablet PO 02/01/21 09:01 DAILY GISEL Protocol Sodium Chloride 3 ml 01/26/21 16:00 01/28/21 08:42 0.9 % Sodium Chloride Flush 3 Ml Syringe IVFLUSH 3 ml QSHIFT GISEL Administration Thiamine HCl 100 mg 01/27/21 09:00 01/28/21 08:41 Thiamine Hcl 100 Mg Tablet PO 01/29/21 09:01 100 mg DAILY GISEL Administration Labs CBC & Chem 7: 01/27/21 07:56 01/28/21 08:50 Labs: Laboratory Results - last 24 hr 01/26/21 01/26/21 01/26/21 02:24 10:16 11:19 Sodium 123 L 130 L 130 L Anion Gap Estim Creat Clear Calc Estimated GFR Random Glucose Calcium 01/26/21 01/27/21 01/28/21 16:00 09:57 08:50 Sodium 129 L 128 L 130 L Anion Gap 12 9 L Estim Creat Clear Calc 97.3 104.2 Estimated GFR > 60 > 60 Random Glucose 157 H 140 H Calcium 7.3 L 7.6 L Assessment and Plan (1) Psychosis: Status: Acute Assessment and Plan: 45 year male with alcohol dependency here with 1/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 underlying Psychosis--SitMARIANA nuñez, Psych eval when medically stable, denies SIMARIANA eval low risk for DVT, ambulate Quality Stroke Does the patient have a stroke diagnosis?: No VTE Prior VTE?: No VTE Risk Level:: Medical - low VTE Device Contraindication: N/A - Device Ordered VTE Drug Contraindication: N/A - Med Ordered
--- NOTE | 2021-01-28 09:55 | PM.DS ---
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 Treated with IV NS, fluid restriction and salt tablet under supervision of nephrology. Sodium is now 130 up from 123 on admission 3 days earlier. He understand not to drink to much water 2/anemia--likely related to alcohol, can have gastritis-B12, folate normal, tsh normal. Given PPI 3/Alcohol withdrawal--Phenobarbital, folic acid, thiamine, not actively withdrawing, advised to stop drinking. and follow up with outpatient program CARE team consulted 4/SI ? underlying Psychosis--MARIANA Abdi, Psych eval when medically stable, denies MARIANA CHIRS to see. Time Spent with Patient Time attestation: Total time spent providing and/or coordinating discharge services: Discharge coordination time: Greater than 30 minutes Quality: Stroke Does the patient have a stroke diagnosis?: No Physical Exam Vital Signs: Vital Signs: Last Vital Signs Temp 98.6 F 01/28/21 07:19 Pulse 99 01/28/21 07:19 Resp 18 01/28/21 07:19 BP 110/66 01/28/21 07:19 Pulse Ox 97 01/28/21 07:19 Body Mass Index 22.7 DS: Data Data Completed and Pending Labs on day of discharge: Laboratory Results - last 24 hr 01/27/21 01/28/21 09:57 08:50 Sodium 128 L 130 L Potassium 3.8 3.9 Chloride 94 L 98 Carbon Dioxide 26 27 Anion Gap 12 9 L BUN 13 14 Creatinine 0.91 0.85 Estim Creat Clear Calc 97.3 104.2 Estimated GFR > 60 > 60 Random Glucose 157 H 140 H Calcium 7.3 L 7.6 L Discharge Plan Discharge Anticipated Discharge Date/Time: 01/28/21 14:12 Patient Disposition: Home, Self-Care Discharge Diagnosis: Hyponatremia Referrals: Physician,Unknown [Primary Care Provider] - 1 Week Discharge Orders: Discharge Order (Routine); Ordered 01/28/21 Ordered By: Pipe Trejo Diet: advance to usual diet Activity on Discharge: As tolerated Stand Alone Forms: Patient Portal Discharge page Care Plan Goals: prevent rehospitalization, stay sobber Health Concerns: Chronic alcohol dependency Plan of Treatment: stay sobber, do not drink more than 1500 a day Assessment: as above Discharge Date/Time: 01/28/21 15:19
[2021-01-28 10:59] VITALS: BP 104/72; PULSE 110; RESP 18; TEMP 37.1; O2SAT 98
--- NOTE | 2021-01-28 12:53 | PM.PNNEP ---
Subjective Subjective Date of Service: 01/28/21 Interval history: Feels better, No SI, sodium 130 Physical Exam Vital Signs: Vital Signs: Last Vital Signs Temp 98.8 F 01/28/21 10:59 Pulse 110 H 01/28/21 10:59 Resp 18 01/28/21 10:59 BP 104/72 01/28/21 10:59 Pulse Ox 98 01/28/21 10:59 Body Mass Index 22.7 Other: Constitutional Awake and Alert, No apparent distress Neck Supple, No lymphadenopathy Cardiovascular RRR, No M/R/G, S1 S2, No S3 S4, No pedal edema Respiratory Lungs clear, No respiratory distress Gastrointestinal Non tender, Non-distended Skin No rash Neurological Alert & oriented x3 Psychological hypervigilence, no hallucination, Denies SI to me Objective Data Labs CBC & Chem 7: 01/27/21 07:56 01/28/21 08:50 Labs: Laboratory Results - last 24 hr 01/28/21 08:50 Sodium 130 L Potassium 3.9 Chloride 98 Carbon Dioxide 27 Anion Gap 9 L BUN 14 Creatinine 0.85 Estim Creat Clear Calc 104.2 Estimated GFR > 60 Random Glucose 140 H Calcium 7.6 L Procedures Date of Service Date of Service: 01/28/21 Assessment & Plan Time Spent With Patient Time: IMPRESSION:? 1. A 45-year-old male with hyponatremia.? He has neurological symptoms associated with hyponatremia given confusion.? ?He has hypo-osmolar hyponatremia.? Urine osmolality is inappropriately concentrated for serum osmolality and serum sodium +? this is worsened by low solute diet and increase free water intake as he stopped drinking alcohol and had some throat issues, which caused him to drink more free water.? TSH is normal and cortisol is pending 2. Anemia. 3. Alcohol withdrawal. ? RECOMMENDATIONS:? Continue fluid restriction of 1.5 L per day.? His sodium level has increased appropriately Avoid alcohol - d/w pt NACL tabs 1 G x2 doses ?Can be d/c'd F/u Cortisol level ?D/w Medical team Thank you for allowing me to participate in the medical management of the patient. Total time spent is greater than 50% in coordination of care (as documented) at patient's floor/unit and/or counseling patient: Progress Note: Quality Stroke Does the patient have a stroke diagnosis?: No
--- NOTE | 2021-01-28 14:24 | MHC.CM.PN ---
Patient has been medically cleared for dc to home today, no services
--- NOTE | 2021-01-28 14:30 | MHC.RECOVRN ---
T/w met with pt in 446 after consult placed to CARE Team for alcoholism. Pt reports prior to COVID, being a social drinker. Pt began drinking regularly during COVID, with May/Jun 2020 being the time when pt began drinking daily. Pt reports at least 10 12 oz beers daily. Pt denies hx withdrawal symptoms. Pt reports this is first admission for treatment of AUD. Pt denies current cravings, pt states I actually have an aversion. Recovery resources discussed, pt declines referrals at this time. Pt reports living with mom, dad, siblings and having a strong support system. Pt provided with resources including medication for AUD, [facility], counseling providers, etc. Pt encouraged to contact t/w if needed, pt agreeable. Case discussed with CARE Team.
--- NOTE | 2021-01-28 15:46 | MHC.CARE ---
CARE Team met with Pt to provide support. Pt denies current SI/HI/VH/AH. Pt reports detoxing at home from alcohol and prior to this he was drinking 10 beers daily. Pt reports he lives at home with parents. Pt reports he hasn't worked in 20 years and recently got connected with health insurance. Pts application is pending. Pt reports he is slightly autistic no other mental health diagnosis. CARE Team spoke with Pts mother Елена who reported she has no concerns regarding his mental health and Pt can be discharged home. Pt provided information regarding [facility] and [facility] PCP offices for providers once health insurance is active.
== END 2021-01-28 15:19 | disposition home or self-care (01) | DRG 241 ==
LOC: HO.ED 07:32 → HO.EDOVER 09:18 → HO.IMC 21:42
PROVIDERS: Internal Medicine Nephrology; Admitting Provider Internal Medicine; Emergency Provider Student in an Organized Health Care Education/Training Program; Visit Provider Internal Medicine
DX: K29.20 Alcoholic gastritis without bleeding (principal); E87.1 Hypo-osmolality and hyponatremia; R45.851 Suicidal ideations; E60 Dietary zinc deficiency; D64.9 Anemia, unspecified; F10.239 Alcohol dependence with withdrawal, unspecified; Z20.822 Contact with and (suspected) exposure to COVID-19; Z87.891 Personal history of nicotine dependence
CPT/HCPCS: 36415; 70450; 80048; 80051; 80053; 80307; 81001; 82077; 82533; 82607; 82746; 83735; 83930; 83935; 84300; 84443; 85025; 85027; 87635; 99285; J2560; J3411; Q0163

== ENCOUNTER 2021-02-01 09:28 | Outpatient (REF) | payer MEDICAID, SELFPAY ==
[2021-02-01 10:51] LABS: Anion Gap 12 (12-20); Carbon Dioxide 24 mmol/L (22-29); Chloride 106 mmol/L (96-108); Potassium 4.8 mmol/L (3.3-5.1); Sodium 137 mmol/L (135-145)
== END 2021-02-01 09:29 | disposition home or self-care (01) ==
LOC: HO.LAB 09:28
PROVIDERS: Visit Provider Internal Medicine
DX: E87.1 Hypo-osmolality and hyponatremia (principal)
CPT/HCPCS: 36415; 80051

== ENCOUNTER 2023-03-15 13:51 | Outpatient (AMB) | payer MEDICAID, SELFPAY ==
--- NOTE | 2023-03-15 13:52 | A.OFFVIS_ITS ---
Intake Vital Signs 03/15/23 14:00 BP 142/94 H Blood Pressure Location Lt radial Position Sitting Pulse 102 H Pulse Source Pulse Oximeter Pulse Oximetry (%) 97 Oxygen Delivery Method Room Air Intake Visit Reasons: MAT Intake Intake Note: The patient presents for a mat intake Plate Gauger Required: No Allergies No Known Allergies Allergy (Verified 03/17/23 06:32) Do you need a note to return to daycare/school/sports/work: No HPI MAT Intake HPI Details Patient presents for evaluation and treatment Mother present during interview Patient appearing intoxicated--acknowledges that he has been drinking prior to appt Drinking 10-15 drinks daily Requesting information on ATS admission Recovery production support developer provided information to patient and his mother Intake interview deferred due to patient's intoxicated state. [facility] Medical History Alcohol dependence No known health problems Social History (Updated 03/17/23 @ 16:36 by JAVID Mary) Household Members: Family Household Members Other:: Parents Housing: House Do you presently have visiting nurse or other home services: No Unable to assess alcohol history related to: Unknown Alcohol intake: current Alcohol intake frequency: 3 or more drinks per day Patient Tobacco Use Status: Current everyday Tobacco user Tobacco use type: Cigarette Cigarette Packs Per Day: 1 Cigarettes Per Day: 20.0 Substance Use Type: Marijuana Advance Directives Date on File: 01/29/21 service: No Review of Systems Const Unobtainable due to mental status Physical Exam Vital Signs: Last Vital Signs Pulse 102 H 03/15/23 14:00 BP 142/94 H 03/15/23 14:00 Pulse Ox 97 03/15/23 14:00 Oxygen Delivery Method Room Air 03/15/23 14:00 Psych Appearance: disheveled Mental Status: other (intoxicated ) Assessment & Plan Assessment & Plan (1) Alcohol use disorder, severe, dependence: Code(s): F10.20 - Alcohol dependence, uncomplicated Plan: * provided inforamtion on admission process for ATS * encouraged to present to ED if any withdrawal sx present Coding Level of Care Code New Pt Level 3 (03049) Diagnoses Alcohol use disorder, severe, dependence F10.20
[2023-03-15 14:00] VITALS: BP 142/94; PULSE 102; O2SAT 97
== END 2023-03-15 14:32 | disposition home or self-care (01) ==
LOC: HO.HCC 13:51
PROVIDERS: Visit Provider Nurse Practitioner Psychiatric/Mental Health
DX: F10.20 Alcohol dependence, uncomplicated (principal)
CPT/HCPCS: 99203

== ENCOUNTER → 2023-03-15 13:51 | Outpatient (BNVA) | payer OTHER, SELFPAY | PROVIDERS: Visit Provider Nurse Practitioner Psychiatric/Mental Health | DX: F10.20 Alcohol dependence, uncomplicated (principal) | CPT/HCPCS: 99212 ==

== ENCOUNTER 2023-03-17 05:43 | Inpatient (IN) | payer OTHER, SELFPAY ==
[2023-03-17] VITALS (7 sets, daily range): BP systolic 143–160; BP diastolic 88–100; PULSE 86–116; RESP 12–20; TEMP 35.9–37; O2SAT 94–98; BMI 21.4; BMI 23.2
--- NOTE | 2023-03-17 06:11 | PC.NURSE ---
Pt changed into hospital attire. Belongings placed in POD locker #1.
[2023-03-17 06:52] LABS: MANUAL DIFF FLAG NO
[2023-03-17 06:53] LABS: Basophils Absolute Auto 0.1 X10*3/uL (0.0-0.2); Basophils Percent Auto 1.4 % (0-2); Eosinophils Absolute Auto 0.5 X10*3/uL (0.0-0.4); Hematocrit 44.9 % (42.0-52.0); Imm Gran Abs Auto 0.02 X10*3/uL (0.00-0.03); Imm Gran Pct Auto 0.3 % (0.0-0.4); Lymphocytes Absolute Auto 1.6 X10*3/uL (1.2-4.9); Lymphocytes Percent Auto 20.5 % (20-40); Mean Corpuscular HGB Conc 35.6 g/dl (31.0-36.0); Mean Corpuscular Hemoglobin 33.5 pg (27.0-33.0); Mean Corpuscular Volume 94.1 fL (80.0-98.0); Mean Platelet Volume 8.9 fL (9.4-12.4); Monocytes Absolute Auto 0.8 X10*3/uL (0.1-1.2); Monocytes Percent Auto 9.7 % (2-11); Neutrophils Absolute Auto 4.9 x10*3/uL (2.0-8.3); Neutrophils Percent Auto 62.1 % (45-73); Platelet Count 264 X10*3/uL (160-400); Red Blood Count 4.77 X10*6/uL (4.60-5.80); Red Cell Distribution Width 12.1 % (11.0-16.0); White Blood Count 7.8 X10*3/uL (4.8-10.8)
--- NOTE | 2023-03-17 06:56 | ED.ALCOHOL ---
HPI - Alcohol General Chief Complaint: ETOH/Substance Use Stated Complaint: ETOH Time Seen by Provider: 03/17/23 06:47 Source: patient Mode of arrival: EMS Limitations: other (acute etoh intoxication) History of Present Illness HPI narrative: 47 yo male with PMHx of etoh dependence, current smoker, presents to the ED today via EMS for acute etoh intoxication and suicidal ideation. Patient reports drinking 12 nips of [employer] and a few beers over the last 24 hours. Admits to feeling suicidal this morning with plan to jump out in front of traffic, prompting him to call EMS for evaluation. Currently denies SI/HI. No auditory, tactile or visual hallucinations. Denies illicit drug use. Denies any medical complaints at this time. History limited due to patient's acute etoh intoxication. Related Data Home Medications Medication Instructions Recorded Confirmed No Known Home Meds 03/17/23 03/17/23 Allergies Allergy/AdvReac Type Severity Reaction Status Date / Time No Known Allergies Allergy Verified 03/17/23 06:32 Review of Systems Review of Systems: Constitutional: No fever, No chills, No fatigue, No malaise ENT/Mouth: No ear pain, No hearing loss Eyes: No eye pain, No swelling, No redness, No vision changes, No foreign body, No discharge Cardio: No chest pain, No palpitations, No dyspnea on exertion, No orthopnea, No edema Respiratory: No SOB, No cough, No sputum, No wheezing, No dyspnea, No hemoptysis GI: No nausea, No vomiting, No hematemesis, No abdominal pain, No diarrhea, No constipation, No hematochezia, No melena : No irregular bleeding, No dysuria, No frequency, No urgency, No hesitancy, No hematuria, No flank pain MSK: No back pain, No neck pain, No joint pain, No myalgias Skin: No skin lesions, No rashes Neuro: No weakness, No numbness, No paresthesias, No LOC, No dizziness, No headache Psych: No anxiety/panic, No depression, No SI/HI, No AH/VH/TH All other systems reviewed are negative. [facility] Past Medical History Attestation statement: The following information was validated with the patient. Source: old records reviewed and nursing notes reviewed Medical History Alcohol dependence No known health problems Social History Social History (Updated 03/17/23 @ 16:36 by JAVID Mary) Household Members: Other Household Members Other:: Parents Housing: House Do you presently have visiting nurse or other home services: No Unable to assess alcohol history related to: Unknown Alcohol intake: current Alcohol intake frequency: 3 or more drinks per day Patient Tobacco Use Status: Current everyday Tobacco user Substance Use Type: Marijuana Advance Directives: Yes Advance Directives on File: Yes Advance Directives Date on File: 01/29/21 service: No Physical Exam ED Vital Signs: Vital Signs - 24 hr 03/17/23 05:49 03/17/23 07:39 03/17/23 10:19 Temperature 96.7 F L 97.8 F 97.6 F Pulse Rate 103 H 100 94 Respiratory Rate 20 20 16 Blood Pressure 155/93 H 153/100 H 143/99 H Pulse Oximetry 96 96 97 Oxygen Delivery Method Room Air Room Air Room Air 03/17/23 13:04 Temperature 97.7 F Pulse Rate 95 Respiratory Rate 12 Blood Pressure 144/93 H Pulse Oximetry 98 Oxygen Delivery Method Room Air BMI result Body Mass Index 21.4 Vital signs notable for tachycardia and tachypnea General: Nontoxic appearing. NAD Skin: Warm and dry. No rashes or lesions. Head: Normocephalic, atraumatic. EENT: Conjunctiva clear. Sclera is anicteric. PERRLA. EOM intact. No nystagmus. Moist mucous membranes. No tongue fasciculation. Controlling secretions. Neck: Supple without LAD. Normal ROM. Trachea midline. Cardiac: Chest wall symmetric. RRR. S1 and S1 appreciated. No MRG. No JVD. Lungs: CTA bilaterally. No rales, rhonchi, or wheezes. Normal respiratory effort without accessory muscle use. Abdomen: No visible lesions or scars. Soft, non-tender, non-distended. No rebound tenderness or guarding. Normoactive BS x4. No masses, hepatomegaly, or splenomegaly. Spine: No midline spinous tenderness. No deformity or step off. Ext: Upper and lower extremities atraumatic. Full ROM throughout.Capillary refill <2 seconds in all extremities. Pulses 2+ equal b/l. No edema, cyanosis, or clubbing. Neuro: Alert and oriented x3. Normal speech. CN 2-12 grossly intact. Strength 5/5 intact throughout. Sensation intact to light touch. NV intact distally. Reflexes 2+ bilaterally. No asterixis. Some tremulousness. Psych: Appropriate mood and affect. Responds appropriately to questions. Course Course Course Narrative: 0707-- upon chart review patient was admitted for acute alcohol withdrawal, hyponatremia, anemia and question underlying psychosis 2 years ago. Waiting on labs. Will assess CIWA given patient's previous withdrawal. 0726-- CIWA 12 > 2g ativan ordered 0735-- CBC without leukocytosis or anemia. Chemistry without acute electrolyte abnormalities requiring intervention. Ethanol 376. Toxicology negative. 1111 - on re-evaluation patient still denies SI/HI. Vital signs are stable. Spoke with Arron from addiction medicine who states that there may be a bed available for him in detox. I feel comfortable with patient going to detox bed as his vitals are still stable, physical exam is unremarkable, workup is negative, and patient is no longer suicidal. Both Arron and I do not feel that care team consultation is necessary. 1116-- Physician observation initiated at 11:16 a.m. pending detox bed. 1224-- CIWA 11 > 2g ativan ordered. Informed by Arron from addiction medicine that there are no detox beds available for the patient. 1527-- on re-evaluation patient tremulous, diaphoretic. CIWA 12 > 10 of phenobarb ordered. Will consult hospitalist for admission for acute alcohol withdrawal. 1600-- Admitted to hospitalist team. Janie Sahu PA-C will put in admission ordered. Bed request in. Medical Decision Making Medical Decision Making [facility] Narrative: 47 yo male with PMHx of etoh dependence, current smoker, presents to the ED today via EMS for acute etoh intoxication and suicidal ideation. Vital signs stable. Patient in no acute distress, nontosic appearing. Exam unrearkable, no nystagmus, tongue fasciculation, or asterexis. Lungs CTA b/l. RRR. No lesions or rashes. Concern for etoh intoxication vs etoh withdrawal vs polysubstance abuse vs suicidal ideation. Plan to obtain basic labs/ UA, CIWA and medically clear patient for addiction medicine. Differential Diagnosis Differential Diagnoses: The differential diagnosis associated with the presentation includes Concern for etoh intoxication vs etoh withdrawal vs polysubstance abuse vs suicidal ideation Consult Healthcare Provider Management of the patient was discussed with: Hospitalist (Janie Sahu) and Behavioral Health Provider ([facility] tony, Arron) Lab Data MDM Lab Attestation statement: I reviewed the patient's lab results. See above course negative. 03/17/23 06:49 03/17/23 06:49 Labs: Lab Results 03/17/23 03/17/23 Range/Units 06:49 07:24 WBC 7.8 (4.8-10.8) X10*3/uL RBC 4.77 (4.60-5.80) X10*6/uL Hgb 16.0 (14.0-18.0) g/dl Hct 44.9 (42.0-52.0) % MCV 94.1 (80.0-98.0) fL MCH 33.5 H (27.0-33.0) pg MCHC 35.6 (31.0-36.0) g/dl RDW 12.1 (11.0-16.0) % Plt Count 264 (160-400) X10*3/uL MPV 8.9 L (9.4-12.4) fL Immature Gran % (Auto) 0.3 (0.0-0.4) % Neut % (Auto) 62.1 (45-73) % Lymph % (Auto) 20.5 (20-40) % [place] % (Auto) 9.7 (2-11) % Eos % (Auto) 6.0 H (0-4) % Baso % (Auto) 1.4 (0-2) % Lymph # (Auto) 1.6 (1.2-4.9) X10*3/uL [place] # (Auto) 0.8 (0.1-1.2) X10*3/uL Eos # (Auto) 0.5 H (0.0-0.4) X10*3/uL Baso # (Auto) 0.1 (0.0-0.2) X10*3/uL Abs Immat Gran (auto) 0.02 (0.00-0.03) X10*3/uL Absolute Neuts (auto) 4.9 (2.0-8.3) x10*3/uL Absolute Nucleated RBC 0.000 (0.0-0.012) X10*3/uL Nucleated RBC % (auto) 0.0 (0.0-0.2) /100WBC Sodium 142 (135-145) mmol/L Potassium 3.7 D (3.3-5.1) mmol/L Chloride 103 (96-108) mmol/L Carbon Dioxide 24 (22-29) mmol/L Anion Gap 19 (12-20) BUN 10 (9-16) mg/dL Creatinine 0.78 (0.5-1.4) mg/dL Estim Creat Clear Calc 111.2 Estimated GFR > 60 Random Glucose 111 (60-115) mg/dL Calcium 9.3 D (8.4-10.2) mg/dL Magnesium 2.1 (1.6-2.6) mg/dL Total Bilirubin 0.2 (0.0-1.0) mg/dL Direct Bilirubin < 0.2 (0.0-0.5) mg/dL AST 136 H (5-37) U/L ALT 118 H (0-40) U/L Alkaline Phosphatase 94 (39-117) U/L Total Protein 7.4 (6.5-8.0) g/dL Albumin 4.4 (3.5-5.0) g/dL Urine Opiates Screen Not Detected (Not Detect) Urine Fentanyl Screen Not Detected (Not Detect) Ur Barbiturates Screen Not Detected (Not Detect) Ur Phencyclidine Scrn Not Detected (Not Detect) Ur Amphetamines Screen Not Detected (Not Detect) U Benzodiazepines Scrn Not Detected (Not Detect) Urine Cocaine Screen Not Detected (Not Detect) U Marijuana (THC) Screen Not Detected (Not Detect) Ethyl Alcohol 376 H* mg/dL Independent Historian Clinical information obtained from an independent historian. History obtained from or confirmed by: EMS External Record Review External record reviewed: Inpatient record Prescription Management I considered prescription management with: Other (anxiolytic, antiepileptic ) Chronic Conditions Patient?s care impacted by: Other (alcohol dependence) Medications Administered Discontinued Medications Generic Name Dose Route Start Last Admin Trade Name Freq PRN Reason Stop Dose Admin Lorazepam 2 mg 03/17/23 07:25 03/17/23 07:44 Lorazepam 2 Mg/Ml Vial IVPUSH 03/17/23 07:26 2 mg ONCE ONE Administration Lorazepam 2 mg 03/17/23 12:24 03/17/23 12:45 Lorazepam 2 Mg/Ml Vial IVPUSH 03/17/23 12:25 2 mg ONCE ONE Administration Phenobarbital Sodium 260 mg 03/17/23 16:00 03/17/23 17:01 Phenobarbital Sodium 130 Mg/Ml Im Once IM 03/17/23 16:01 260 mg ONCE ONE Administration Protocol Critical Care Time Critical Care Time Critical Care Time: No Total Critical Care Time: 60 Discharge Plan Discharge Clinical Impression: Alcohol dependence, Alcoholic intoxication Patient Disposition: Still a Patient
[2023-03-17 07:11] LABS: Ethanol 376 mg/dL
[2023-03-17 07:13] LABS: Anion Gap 19 (12-20); Blood Urea Nitrogen 10 mg/dL (9-16); Calcium 9.3 mg/dL (8.4-10.2); Carbon Dioxide 24 mmol/L (22-29); Chloride 103 mmol/L (96-108); Creatinine Clr Calc Pharmacy 111.2; Estimated Glomerular Filt Rate > 60; Glucose Random 111 mg/dL (60-115); Potassium 3.7 mmol/L (3.3-5.1); Sodium 142 mmol/L (135-145)
--- NOTE | 2023-03-17 07:22 | PC.NURSE ---
Addendum entered by Emilee Fraga 03/17/23 07:44: Azeem HUA made aware. pt medicated per aug. Original Note: axox3, reporting increased anxiety/nausea/MELTON. denies si/hi at this time. steady gait ambulatory to bathroom. ciwa 12 at this time. Vanessa HUA aware; awaiting orders.
[2023-03-17 07:37] LABS: Amphetamine Screen Urine Not Detected (Not Detect); Barbiturates, Urine Not Detected (Not Detect); Benzodiazepines Screen Urine Not Detected (Not Detect); Cannabinoid Screen Urine Not Detected (Not Detect); Cocaine Screen Urine Not Detected (Not Detect); Fentanyl, urine Not Detected (Not Detect); Opiate Screen Urine Not Detected (Not Detect); Phencyclidine Screen Urine Not Detected (Not Detect)
[2023-03-17] MEDS: LORazepam 2 MG/ML VIAL IVPUSH ×2 (07:44→12:45)
--- NOTE | 2023-03-17 09:17 | MHC.RECOVRN ---
Addendum entered by Drew Gould 03/17/23 13:38: [facility]S bed search has been exhausted, pt to follow up from the community. Addendum entered by Drew Gould 03/17/23 11:56: ATS bed search is in process. Original Note: Pt sleeping deeply on his stretcher at this time, per his nurse he very recently received some ativan. Pt's nurse instructed to contact t/w as soon as he is more rousable.
--- NOTE | 2023-03-17 12:21 | PC.NURSE ---
pt ambulatory to bathroom steady gait. appearing tremory; ciwa 11. Rainy PA notified.
--- NOTE | 2023-03-17 15:20 | PC.NURSE ---
juan 12. Rainy PA aware.
--- NOTE | 2023-03-17 15:30 | PC.NURSE ---
pt room assignment changed at this time. report given to Alem WHITTAKER by Shira del rosario RN.
--- NOTE | 2023-03-17 16:27 | PM.IMHP ---
History of Present Illness Date of Service: 03/17/23 <JAVID Mary - Last Filed: 03/17/23 17:14> Attending physician on admission: Sharon Miller / GERALD <JAVID Mary - Last Filed: 03/17/23 17:14> Chief Complaint: seeking detox <JAVID Mary - Last Filed: 03/17/23 17:14> This is a 47 year old male with history of alcohol dependence who was brought to the ED for alcohol intoxication. He had suicidal ideation on arrival but stated that it was related to acute intoxication and after arrival to the emergency department denied any SI, HI. He was evaluated by the care team and initially the plan was to find him a detox bed. He received 2 doses of Ativan. No detox bed was able to be obtained and his CIWA score increased to 12 but he became more tremulous at which point he was started on phenobarbital protocol and the decision was made to admit him to the hospital for further management. He states that he has been drinking a handle of [employer] every 2 or 3 days as well as a few beers daily. In the emergency department his lab work was relatively unremarkable. Other than feeling tremulous he denies any other specific complaints. He wants to stop drinking alcohol. <JAVID Mary - Last Filed: 03/17/23 17:14> Review of Systems Review of Systems: Yes all other systems are reviewed and are negative <JAVID Mary - Last Filed: 03/17/23 17:14> Constitutional: Constitutional: Denies chills and Denies fever(s) <JAVID Mary - Last Filed: 03/17/23 17:14> Cardiovascular: Cardiovascular: Denies chest pain <JAVID Mary - Last Filed: 03/17/23 17:14> Gastrointestinal: Gastrointestinal: Denies abdominal pain <JAVID Mary Last Filed: 03/17/23 17:14> [facility] Medical History: Medical History Alcohol dependence No known health problems <JAVID Mary Last Filed: 03/17/23 17:14> Pertinent family history: early CAD - maternal grandfather in 40s of [place] <JAVID Mary - Last Filed: 03/17/23 17:14> Social History: Social History (Updated 03/17/23 @ 16:36 by JAVID Mary) Household Members: Other Household Members Other:: Parents Housing: House Do you presently have visiting nurse or other home services: No Unable to assess alcohol history related to: Unknown Alcohol intake: current Alcohol intake frequency: 3 or more drinks per day Patient Tobacco Use Status: Current everyday Tobacco user Substance Use Type: Marijuana Advance Directives: Yes Advance Directives on File: Yes Advance Directives Date on File: 01/29/21 Nutrition Risks: No Nutritional Risk service: No <JAVID Mary - Last Filed: 03/17/23 17:14> Meds Allergies/Adverse reactions: Allergies Allergy/AdvReac Type Severity Reaction Status Date / Time No Known Allergies Allergy Verified 03/17/23 06:32 <JAVID Mary - Last Filed: 03/17/23 17:14> Active Medications: Current Medications Docusate Sodium (Docusate Sodium 100 Mg Capsule) 100 mg PO DAILY PRN PRN Reason: Constipation Lactated Ringer's (Lr) 1,000 mls @ 100 mls/hr IVCONT .Q10H [facility] Pharmacy Consult (Consult Rx Etoh Phenob Im/Po) 1 each MISCELLANE ONCE PRN; Protocol PRN Reason: Consult order Phenobarbital (Phenobarbital 15 Mg Tablet) 45 mg PO BID GISEL; Protocol Stop: 03/19/23 21:01 Phenobarbital (Phenobarbital 30 Mg Tablet) 30 mg PO BID [facility]; Protocol Stop: 03/21/23 21:01 Phenobarbital (Phenobarbital 30 Mg Tablet) 30 mg PO DAILY [facility]; Protocol Stop: 03/23/23 09:01 Phenobarbital Sodium (Phenobarbital Sodium 130 Mg/Ml Vial Im Q3hx2) 197 mg IM Q3H GISEL; Protocol Stop: 03/17/23 20:01 Sodium Chloride (0.9 % Sodium Chloride Flush 3 Ml Syringe) 3 ml IVFLUSH QSHIFT GISEL <JAVID Mary - Last Filed: 03/17/23 17:14> Home medications: Home Medications Medication Instructions Recorded Confirmed Last Taken Type No Known Home Meds 03/17/23 03/17/23 Unknown History <JAVID Mary - Last Filed: 03/17/23 17:14> Physical Exam Vital Signs and Narrative: Vital Signs: Last Vital Signs Temp 97.7 F 03/17/23 13:04 Pulse 95 03/17/23 13:04 Resp 12 03/17/23 13:04 BP 144/93 H 03/17/23 13:04 Pulse Ox 98 03/17/23 13:04 O2 Del Method Room Air 03/17/23 13:04 BMI result Body Mass Index 21.4 <JAVID Mary - Last Filed: 03/17/23 17:14> Const: Other: tremulous, awake, alert <JAVID Mary - Last Filed: 03/17/23 17:14> General: poor hygiene <JAVID Mary - Last Filed: 03/17/23 17:14> Nutritional Appearance: thin <JAVID Mary - Last Filed: 03/17/23 17:14> Orientation/consciousness: patient oriented x3 <JAVID Mary - Last Filed: 03/17/23 17:14> Resp: Effort & Inspection: normal respiratory effort, able to speak in complete sentences, no respiratory distress and no use of accessory muscles <JAVID Mary - Last Filed: 03/17/23 17:14> Cardio: Rate: regular rate <JAVID Mary - Last Filed: 03/17/23 17:14> GI: Inspection: No distended <JAVID Mary - Last Filed: 03/17/23 17:14> Palpation (GI): Soft to palpation <JAVID Mary - Last Filed: 03/17/23 17:14> Neuro: General: patient oriented x3, moves all extremities and CN's II-XI intact bilaterally <JAVID Mary - Last Filed: 03/17/23 17:14> Extrem: General: Yes no pedal edema <JAVID Mary - Last Filed: 03/17/23 17:14> Results Labs CBC and Chem 7: 03/17/23 06:49 03/17/23 06:49 <JAVID Mary - Last Filed: 03/17/23 17:14> Labs: Laboratory Results - last 24 hr 03/17/23 03/17/23 06:49 07:24 MCV 94.1 MCH 33.5 H MCHC 35.6 RDW 12.1 Plt Count 264 MPV 8.9 L Immature Gran % (Auto) 0.3 Neut % (Auto) 62.1 Lymph % (Auto) 20.5 [place] % (Auto) 9.7 Eos % (Auto) 6.0 H Baso % (Auto) 1.4 Lymph # (Auto) 1.6 [place] # (Auto) 0.8 Eos # (Auto) 0.5 H Baso # (Auto) 0.1 Abs Immat Gran (auto) 0.02 Absolute Neuts (auto) 4.9 Absolute Nucleated RBC 0.000 Nucleated RBC % (auto) 0.0 Anion Gap 19 Estim Creat Clear Calc 111.2 Estimated GFR > 60 Random Glucose 111 Calcium 9.3 D Urine Opiates Screen Not Detected Urine Fentanyl Screen Not Detected Ur Barbiturates Screen Not Detected Ur Phencyclidine Scrn Not Detected Ur Amphetamines Screen Not Detected U Benzodiazepines Scrn Not Detected Urine Cocaine Screen Not Detected U Marijuana (THC) Screen Not Detected Ethyl Alcohol 376 H* <JAVID Mary - Last Filed: 03/17/23 17:14> Assessment and Plan (1) Alcohol dependence: Status: Acute <JAVID Mary - Last Filed: 03/17/23 17:14> this is a 47-year-old male with history of alcohol dependence who was brought to the emergency department due to acute alcohol intoxication and SI with plan for detox but patient began to withdraw now being admitted for management of acute alcohol withdrawal Alcohol dependence with acute alcohol withdrawal phenobarbitol protocol initiated in ED thiamine, folic acid supplementation addiction medicine consult - pt wants to stop drinking LFTs, Mag pending SI 1:1 sitter Care team eval when medically cleared Nicotine dependence NRT elevated LFTs likely r/t etoh use trend DVT ppx - lovenox code status - full code patient denies taking any medication at baseline attending - Dr. Miller patient will likely require two midnight stay in the hospital for management of acute alcohol withdrawal requiring phenobarbital Addendum to history and physical by the advanced practice provider, JAVID Finch I interviewed and examined the patient. I discussed their presentation and management with the JARED. I reviewed the history and physical and agree with the documentation, with the following additions and corrections: 47yo M with AUD presenting with acute withdrawal, SI. No hx sz. Tremulous, tachycardic. Admit for phenobarbital taper, Add Med consultation, 1:1 then Care Team eval <JAVID Mary - Last Filed: 03/17/23 17:14> this is a 47-year-old male with history of alcohol dependence who was brought to the emergency department due to acute alcohol intoxication and SI with plan for detox but patient began to withdraw now being admitted for management of acute alcohol withdrawal Alcohol dependence with acute alcohol withdrawal phenobarbitol protocol initiated in ED thiamine, folic acid supplementation addiction medicine consult - pt wants to stop drinking LFTs, Mag pending SI 1:1 sitter Care team eval when medically cleared Nicotine dependence NRT DVT ppx - lovenox code status - full code patient denies taking any medication at baseline attending - Dr. Miller patient will likely require two midnight stay in the hospital for management of acute alcohol withdrawal requiring phenobarbital Addendum to history and physical by the advanced practice provider, JAVID Finch I interviewed and examined the patient. I discussed their presentation and management with the JARED. I reviewed the history and physical and agree with the documentation, with the following additions and corrections: 47yo M with AUD presenting with acute withdrawal, SI. No hx sz. Tremulous, tachycardic. Admit for phenobarbital taper, Add Med consultation, 1:1 then Care Team eval <Sharon Miller MD - Last Filed: 03/17/23 17:02> Time Spent With Patient Time: Total time managing care of this patient today ____ minutes. <JAVID Mary - Last Filed: 03/17/23 17:14> Quality Stroke Does the patient have a stroke diagnosis?: No <Sharon Miller MD - Last Filed: 03/17/23 17:02> VTE Prior VTE?: No <Sharon Miller MD - Last Filed: 03/17/23 17:02> VTE Risk Level:: Medical - moderate - high <JAVID Mary - Last Filed: 03/17/23 17:14> VTE Device Contraindication: N/A - Device Ordered <JAVID Mary - Last Filed: 03/17/23 17:14> VTE Drug Contraindication: N/A - Med Ordered <JAVID Mary - Last Filed: 03/17/23 17:14>
--- NOTE | 2023-03-17 16:53 | PC.NURSE ---
pt assignment changed again; assuming care of pt at this time.
[2023-03-17 17:00] LABS: Alanine Aminotransferase 118 U/L (0-40); Albumin Level 4.4 g/dL (3.5-5.0); Alkaline Phosphatase 94 U/L (39-117); Aspartate Amino Transferase 136 U/L (5-37); Bilirubin Direct < 0.2 mg/dL (0.0-0.5); Bilirubin Total 0.2 mg/dL (0.0-1.0); Magnesium 2.1 mg/dL (1.6-2.6); Total Protein 7.4 g/dL (6.5-8.0)
[2023-03-17] MEDS: PHENobarbitaL sodium 130 MG/ML IM ONCE 260 MG IM (17:01)
[2023-03-17] MEDS: Lactated Ringers 1,000 ML 100 ML IVCONT (17:50)
--- NOTE | 2023-03-17 17:50 | PC.NURSE ---
Pharm called and asked to retime dose 2/3 of phenobarb to align with first dose
[2023-03-17] MEDS: Thiamine HCL 100 MG TABLET PO (17:51)
[2023-03-17] MEDS: Nicotine 14 MG PATCH.TD24 TRANSDERMA (17:51)
[2023-03-17] MEDS: Enoxaparin Sodium 40 MG/0.4 ML SYRINGE SUBCUT (17:51)
[2023-03-17] MEDS: Folic Acid 1 MG TABLET PO (17:51)
[2023-03-17] MEDS: ondansetron HCL 4 MG/2 ML VIAL IVPUSH (17:53)
[2023-03-17] MEDS: PHENobarbitaL sodium 130 MG/ML VIAL IM Q3Hx2 197 MG IM ×2 (20:10→23:08)
[2023-03-17] MEDS: Metoclopramide HCl 5 MG TABLET PO (23:08)
[2023-03-17] MEDS: Calcium Carbonate 750 MG TAB.CHEW PO (23:08)
[2023-03-17] MEDS: 0.9 % Sodium Chloride Flush 3 ML SYRINGE IVFLUSH (23:09)
[2023-03-18 03:06] VITALS: BP 136/67; PULSE 86; RESP 20; TEMP 36.1; O2SAT 96
[2023-03-18] MEDS: Lactated Ringers 1,000 ML 100 ML IVCONT ×3 (04:07→23:46)
[2023-03-18 06:32] LABS: Mean Corpuscular HGB Conc 34.1 g/dl (31.0-36.0); Mean Corpuscular Hemoglobin 33.7 pg (27.0-33.0); Mean Corpuscular Volume 98.6 fL (80.0-98.0); Mean Platelet Volume 9.9 fL (9.4-12.4); Platelet Count 216 X10*3/uL (160-400); Red Blood Count 4.16 X10*6/uL (4.60-5.80); Red Cell Distribution Width 12.1 % (11.0-16.0)
[2023-03-18 06:42] LABS: Alanine Aminotransferase 107 U/L (0-40); Albumin Level 3.8 g/dL (3.5-5.0); Alkaline Phosphatase 84 U/L (39-117); Anion Gap 12 (12-20); Aspartate Amino Transferase 127 U/L (5-37); Bilirubin Direct 0.2 mg/dL (0.0-0.5); Bilirubin Total 0.5 mg/dL (0.0-1.0); Blood Urea Nitrogen 12 mg/dL (9-16); Calcium 9.1 mg/dL (8.4-10.2); Carbon Dioxide 28 mmol/L (22-29); Chloride 101 mmol/L (96-108); Estimated Glomerular Filt Rate > 60; Glucose Random 94 mg/dL (60-115); Potassium 3.6 mmol/L (3.3-5.1); Sodium 137 mmol/L (135-145); Total Protein 6.6 g/dL (6.5-8.0)
[2023-03-18 07:26] VITALS: BP 149/94; PULSE 100; RESP 20; TEMP 36.3; O2SAT 96
[2023-03-18] MEDS: Nicotine 14 MG PATCH.TD24 TRANSDERMA (07:45)
[2023-03-18] MEDS: PHENobarbitaL 15 MG TABLET 45 MG PO ×2 (07:48→21:44)
[2023-03-18] MEDS: Folic Acid 1 MG TABLET PO (07:48)
[2023-03-18] MEDS: Famotidine/PF 20 MG/2 ML VIAL IVPUSH (07:48)
[2023-03-18] MEDS: Thiamine HCL 100 MG TABLET PO (07:49)
--- NOTE | 2023-03-18 10:20 | HO.PM.IMPN ---
Subjective Subjective Date of Service: 03/18/23 Interval History: Follow up ETOH withdrawal and intoxication feeling better appetite improving Review of Systems Gen: no fever Resp: no sob, no cough CV: no chest, no VINCENT, no leg edema GI: No n/v, no abd pain Neuro: No confusion Psych: insominia, hypervigilenc Physical Exam Vital Signs: Vital Signs: Last Vital Signs Temp 97.3 F 03/18/23 07:26 Pulse 100 03/18/23 07:26 Resp 20 03/18/23 07:26 BP 149/94 H 03/18/23 07:26 Pulse Ox 96 03/18/23 07:26 O2 Del Method Room Air 03/18/23 07:26 BMI result Body Mass Index 23.2 Appearing in no acute distress lung sounds are clear to auscultation heart regular rate rhythm, clear S1, S2 positive bowel sounds, abdomen is soft, nontender neuro patient is alert x3, no focal deficits Objective Data Active Medications Docusate Sodium (Docusate Sodium 100 Mg Capsule) 100 mg PO DAILY PRN PRN Reason: Constipation Enoxaparin Sodium (Enoxaparin Sodium 40 Mg/0.4 Ml Syringe) 40 mg SUBCUT Q24H [facility] Last Admin: 03/17/23 17:51 Dose: 40 mg Documented By: GHULAM Famotidine (Famotidine/Pf 20 Mg/2 Ml Vial) 20 mg IVPUSH DAILY [facility] Last Admin: 03/18/23 07:48 Dose: 20 mg Documented By: WAYNE Folic Acid (Folic Acid 1 Mg Tablet) 1 mg PO DAILY [facility] Last Admin: 03/18/23 07:48 Dose: 1 mg Documented By: WAYNE Lactated Ringer's (Lr) 1,000 mls @ 100 mls/hr IVCONT .Q10H [facility] Last Admin: 03/18/23 04:07 Dose: 100 mls/hr Documented By: ANNY Nicotine (Nicotine 14 Mg Patch.Td24) 14 mg TRANSDERMA DAILY [facility] Last Admin: 03/18/23 07:45 Dose: 14 mg Documented By: WAYNE Ondansetron HCl (Ondansetron Hcl 4 Mg/2 Ml Vial) 4 mg IVPUSH Q8H PRN PRN Reason: Nausea and Vomiting Last Admin: 03/17/23 17:53 Dose: 4 mg Documented By: GHULAM Pharmacy Consult (Consult Rx Etoh Phenob Im/Po) 1 each MISCELLANE ONCE PRN; Protocol PRN Reason: Consult order Phenobarbital (Phenobarbital 15 Mg Tablet) 45 mg PO BID [facility]; Protocol Stop: 03/19/23 21:01 Last Admin: 03/18/23 07:48 Dose: 45 mg Documented By: WAYNE Phenobarbital (Phenobarbital 30 Mg Tablet) 30 mg PO BID [facility]; Protocol Stop: 03/21/23 21:01 Phenobarbital (Phenobarbital 30 Mg Tablet) 30 mg PO DAILY [facility]; Protocol Stop: 03/23/23 09:01 Sodium Chloride (0.9 % Sodium Chloride Flush 3 Ml Syringe) 3 ml IVFLUSH QSHIFT [facility] Last Admin: 03/18/23 07:49 Dose: Not Given Documented By: WAYNE Non-Admin Reason: IV Running Thiamine HCl (Thiamine Hcl 100 Mg Tablet) 100 mg PO DAILY [facility] Last Admin: 03/18/23 07:49 Dose: 100 mg Documented By: WAYNE Labs 03/18/23 05:52 03/18/23 05:52 Labs: Laboratory Results - last 24 hr 03/17/23 03/18/23 06:49 05:52 MCV 98.6 H MCH 33.7 H MCHC 34.1 RDW 12.1 Plt Count 216 MPV 9.9 Absolute Nucleated RBC 0.000 Nucleated RBC % (auto) 0.0 Anion Gap 12 Estim Creat Clear Calc 118.0 Estimated GFR > 60 Random Glucose 94 Calcium 9.1 Magnesium 2.1 Total Bilirubin 0.2 0.5 Direct Bilirubin < 0.2 0.2 AST 136 H 127 H ALT 118 H 107 H Alkaline Phosphatase 94 84 Total Protein 7.4 6.6 Albumin 4.4 3.8 Assessment and Plan (1) Alcoholic intoxication: Status: Acute Plan 47-year-old male with history of alcohol dependence who was brought to the emergency department due to acute alcohol intoxication and SI with plan for detox but patient began to withdraw now being admitted for management of acute alcohol withdrawal Alcohol dependence with acute alcohol withdrawal phenobarbitol protocol initiated thiamine, folic acid supplementation addiction medicine consult - pt wants to stop drinking supportive care SI Resolved s/p 1:1 sitter in the ED Care team eval when medically cleared Nicotine dependence NRT transaminitis Trending down secondary to etoh use trend DVT ppx - lovenox code status - full code attending - Dr. Trejo continue hospital stay for management of acute alcohol withdrawal requiring phenobarbital Time Spent With Patient Time: Total time managing care of this patient today ____ minutes. Quality Stroke Does the patient have a stroke diagnosis?: No VTE Prior VTE?: No VTE Risk Level:: Medical - moderate - high VTE Device Contraindication: N/A - Device Ordered VTE Drug Contraindication: N/A - Med Ordered
[2023-03-18 11:32] VITALS: BP 155/95; PULSE 97; RESP 20; TEMP 36.5; O2SAT 98
--- NOTE | 2023-03-18 12:09 | MHC.RECOVRN ---
Addendum entered by Debi Leigh RN 03/18/23 17:03: This production underwriter met with patient, provided [facility] resources at the bedside for patient to review. Pt resting comfortably. T/W to return to review resources. Original Note: This production underwriter met with patient, addiction consult received. Pt admitted for ETOH withdrawal. Pt was sitting up in bed. Pt visibly sweaty, slight tremor, reports intense nausea, pt denies MELTON, AVH, anxiety, irritability. CIWA 9. This production underwriter contacted patients RN and Provider with findings. Pt reports drinking daily past 4 years, since Covid, 10-15 shots daily. Pt reports prior to 4 years ago was a social drinker and not daily use. Pt reports isolation, anxiety led to increased use. Pt reports no hx of treatment level of care, no hx of medications for ETOH use. Pt reports 2 years prior admitted for ETOH use here at [facility]. Pt reports goal of abstinence, reviewed with patient will return to review resources when pt more stable. Pt verbalized understanding.
[2023-03-18] MEDS: ondansetron HCL 4 MG/2 ML VIAL IVPUSH (12:17)
[2023-03-18 15:40] VITALS: BP 142/94; PULSE 95; RESP 15; TEMP 36.3; O2SAT 97
--- NOTE | 2023-03-18 15:43 | MHC.CM.PN ---
CM MET WITH PT AT BEDSIDE. PT LIVES WITH PARENTS. PT VERY MOTIVATED TO STOP DRINKING. INDEPENDENT AT BASELINE. +COVID VAX +HCP NO PCP, BROCHURE FOR [facility] PROVIDED. - THRIVE ASSESSMENT DP: HOME, NO SERVICES ANTICIPATED. FAMILY WILL TRANSPORT. CM WILL CONTINUE TO FOLLOW FOR CHANGE IN DC PLAN/NEEDS.
[2023-03-18] MEDS: Enoxaparin Sodium 40 MG/0.4 ML SYRINGE SUBCUT (17:13)
[2023-03-18 20:00] VITALS: BP 146/85; PULSE 100; RESP 15; TEMP 36.4; O2SAT 98
[2023-03-18 22:52] VITALS: BP 138/87; PULSE 88; RESP 14; TEMP 36.3; O2SAT 96
[2023-03-19] MEDS: LORazepam 2 MG/ML VIAL 1 MG IVPUSH (00:15)
[2023-03-19] MEDS: 0.9 % Sodium Chloride Flush 3 ML SYRINGE IVFLUSH ×2 (00:16→07:46)
[2023-03-19 04:00] VITALS: BP 128/80; PULSE 98; RESP 15; TEMP 36.7; O2SAT 100
--- NOTE | 2023-03-19 05:18 | PC.NURSE ---
ASSUMED CARE OF PT AT 1900. PT MILDLY ANXIOUS WITH A CIWA SCORE OF 7. PT STATES HE MIGHT JUST LEAVE THE HOSPITAL MONDAY IF NO DETOX BEDS AVAILABLE. STATES HE LIVES WITH HIS MOTHER WHO WILL WATCH HIM. HE DENIES HEADACHE, N OR V. HAS MILD TREMORS OF HANDS. BP 146/85. HR LOW 100'S SR 100-108. HE IS A&OX3. SPOKE TO PT AND OFFERED REASSURANCE. PHENOBARB 45 MG PO SCHEDULED DOSE GIVEN BUT PT CONTINUED WITH ANXIETY AND BECAME RESTLESS GETTING OOB AND SETTING OFF BED ALARM. HE WAS BECOMING ANNOYED WITH BED ALARM AND IV WHICH KEPT ALARMING EVERY TIME HE MOVED HIS ARM. HE ALSO STATED HE WAS MISSING THE HABIT OF SMOKING. HE ALREADY HAD A NICOTINE PATCH ON. MD NOTIFIED OF INCREASING ANXIETY AND ATIVAN 1 MG IV GIVEN WITH GOOD EFFECT. IV FLUIDS ALSO D/C'D WHICH PT WAS GLAD. HE IS TAKING PO FLUIDS WELL. PT IS HIGH FALL RISK BUT HAS GOTTEN OOB TO BR WITH 1 STANDBY ASST. GAIT IS STEADY.
[2023-03-19] MEDS: Nicotine 14 MG PATCH.TD24 TRANSDERMA (07:45)
[2023-03-19] MEDS: Thiamine HCL 100 MG TABLET PO (07:45)
[2023-03-19] MEDS: Famotidine/PF 20 MG/2 ML VIAL IVPUSH (07:45)
[2023-03-19] MEDS: Folic Acid 1 MG TABLET PO (07:45)
[2023-03-19] MEDS: PHENobarbitaL 15 MG TABLET 45 MG PO ×2 (07:45→21:34)
[2023-03-19 07:59] VITALS: BP 142/89; PULSE 105; RESP 16; TEMP 36.2; O2SAT 97
[2023-03-19 09:23] LABS: Alanine Aminotransferase 122 U/L (0-40); Alkaline Phosphatase 105 U/L (39-117); Anion Gap 12 (12-20); Aspartate Amino Transferase 139 U/L (5-37); Bilirubin Direct 0.3 mg/dL (0.0-0.5); Bilirubin Total 0.6 mg/dL (0.0-1.0); Blood Urea Nitrogen 10 mg/dL (9-16); Calcium 9.2 mg/dL (8.4-10.2); Carbon Dioxide 23 mmol/L (22-29); Chloride 103 mmol/L (96-108); Creatinine Clr Calc Pharmacy 131.3; Estimated Glomerular Filt Rate > 60; Glucose Random 124 mg/dL (60-115); Potassium 3.7 mmol/L (3.3-5.1); Sodium 134 mmol/L (135-145)
--- NOTE | 2023-03-19 10:30 | P.DS_ITS ---
DS: Providers Provider Date of Service: 03/19/23 Date of admission: 03/17/23 16:11 Primary care physician: Garrett Calvert MD Consults: 03/17/23 06:56 Consult to Care Team Stat Comment: Reason for consultation: SI with plan earlier today 03/17/23 16:21 Consult for Sitter Routine Reason for consultation: SI DS: Diagnosis Discharge Diagnosis (1) Alcoholic intoxication: Status: Acute DS: Summary Hospital Course Hospital Course: History and physical as per admitting provider. This is a 47 year old male with history of alcohol dependence who was brought to the ED for alcohol intoxication. He had suicidal ideation on arrival but stated that it was related to acute intoxication and after arrival to the emergency department denied any SI, HI. He was evaluated by the care team and initially the plan was to find him a detox bed. He received 2 doses of Ativan. No detox bed was able to be obtained and his CIWA score increased to 12 but he became more tremulous at which point he was started on phenobarbital protocol and the decision was made to admit him to the hospital for further management. He states that he has been drinking a handle of Seemage every 2 or 3 days as well as a few beers daily. In the emergency department his lab work was relatively unremarkable. Other than feeling tremulous he denies any other specific complaints. He wants to stop drinking alcohol. 47-year-old man treated for alcohol withdrawal and dependence. Treated with phenobarbital protocol, thiamine and folic acid. Seen and evaluated by addiction medicine. Patient had not had any episodes withdrawal symptoms. While in the ER he had an episode of suicidal ideation however reports that it was from alcohol intoxication and was cleared in the ED. he did have noted transaminitis secondary to alcohol ingestion, he needs to check his liver enzymes in 3 days. Will be started on naltrexone 50 mg daily for assistance with alcohol cessation, needs a follow-up with primary care provider to adjust his medications. Tobacco use. Discussed importance of smoking cessation Time Spent with Patient Time attestation: Total time managing care of this patient today ____ minutes. Discharge coordination time: Greater than 30 minutes Quality: Safe Use of Opioids Does Pt have an Active Cancer Diagnosis on the Problem List?: No Quality: Stroke Does the patient have a stroke diagnosis?: No Physical Exam Vital Signs: Vital Signs: Last Vital Signs Temp 97.2 F 03/19/23 07:59 Pulse 105 H 03/19/23 07:59 Resp 16 03/19/23 07:59 BP 142/89 H 03/19/23 07:59 Pulse Ox 97 03/19/23 07:59 O2 Del Method Room Air 03/19/23 07:59 BMI result Body Mass Index 23.2 DS: Data Data Completed and Pending Completed studies during hospitalization [Text1]: Procedures Detoxification Services for Substance Abuse Treatment (01/26/21) Labs on day of discharge: Laboratory Results - last 24 hr 03/19/23 09:00 Sodium 134 L Potassium 3.7 Chloride 103 Carbon Dioxide 23 Anion Gap 12 BUN 10 Creatinine 0.71 Estim Creat Clear Calc 131.3 Estimated GFR > 60 Random Glucose 124 H Calcium 9.2 Total Bilirubin 0.6 Direct Bilirubin 0.3 AST 139 H ALT 122 H Alkaline Phosphatase 105 Total Protein 7.0 Albumin 4.0 Discharge Plan Discharge Anticipated Discharge Date/Time: 03/19/23 10:17 Patient Disposition: Home, Self-Care Discharge Diagnosis: Alcohol withdrawal and intoxication Transaminitis Referrals: Garrett Calvert MD [Primary Care Provider] - 1 Week Discharge Medications: New naltrexone 50 mg tablet 50 mg PO DAILY Qty: 30 0RF Discharge Orders: Discharge Order (Routine); Ordered 03/19/23 Ordered By: Ama Claros Diet: Advance to usual diet Activity on Discharge: As tolerated Stand Alone Forms: Patient Portal Discharge page Other Ambulatory Orders: Liver Panel (Routine) Timeframe: 3 Days Facility: [facility] [place] - Location: Laboratory Ordered By: Ama Claros Care Plan Goals: No further dependence on alcohol Health Concerns: Alcohol withdrawal and intoxication Transaminitis Plan of Treatment: Follow-up with primary care provider as needed Do not drink alcohol, you have been started on a medication called Naltrexone to help you stop drinking alcohol Check labs in 3 days Assessment: See discharge summary
--- NOTE | 2023-03-19 11:03 | MHC.CM.PN ---
Patient has been medically cleared for dc to home today, self care
[2023-03-19] MEDS: Naltrexone HCl 50 MG TABLET PO (11:13)
[2023-03-19 11:17] VITALS: BP 139/99; PULSE 98; RESP 20; TEMP 36.3; O2SAT 98
--- NOTE | 2023-03-19 11:30 | MHC.RECOVRN ---
Addendum entered by Debi Leigh RN 03/19/23 16:47: This underwriter mortgage loan returned to meet w/ pt and patients Mom per request. Patient was standing, ready to discharge. Pt mild tremor, sweaty, reports increased anxiety. Reviewed findings with patients floor RN Isabelle who contacted Provider. This underwriter mortgage loan reviewed Naltrexone side effects with patient, patients Mom was in room. Patients Mom stated concerned that patient was anxious, reviewed w/ Mom Naltrexone medication, reviewed that Ly RN was in contact with Provider in regard to patients increased anxiety. Original Note: This underwriter mortgage loan met with patient, patient was resting, awake to verbal command. Pt denies ETOH withdrawal, alert and oriented x's 3. Reviewed resources, reviewed patient can make appt with [facility] or present as a walk in, if interested in medications for ETOH use. Pt request this underwriter mortgage loan to return when Mother. T/W to return to review with patient and Mom per patient request.
[2023-03-19] MEDS: Docusate Sodium 100 MG CAPSULE PO (12:06)
[2023-03-19 16:00] VITALS: BP 146/94; PULSE 89; RESP 14; TEMP 36; O2SAT 98
--- NOTE | 2023-03-19 16:10 | P.PNIM_ITS ---
Subjective Subjective Date of Service: 03/19/23 Interval History: Follow up ETOH withdrawal and intoxication feeling shaky this afternoon appetite improving Review of Systems Gen: no fever Resp: no sob, no cough CV: no chest, no VINCENT, no leg edema GI: No n/v, no abd pain Neuro: No confusion Psych: insominia, hypervigilenc Physical Exam 2 Vital Signs: Vital Signs: Last Vital Signs Temp 97.4 F 03/19/23 11:17 Pulse 98 03/19/23 11:17 Resp 20 03/19/23 11:17 BP 139/99 H 03/19/23 11:17 Pulse Ox 98 03/19/23 11:17 O2 Del Method Room Air 03/19/23 11:17 BMI result Body Mass Index 23.2 Appearing in no acute distress lung sounds are clear to auscultation heart regular rate rhythm, clear S1, S2 positive bowel sounds, abdomen is soft, nontender neuro patient is alert x3, no focal deficits Objective Data Active Medications Docusate Sodium (Docusate Sodium 100 Mg Capsule) 100 mg PO DAILY PRN PRN Reason: Constipation Last Admin: 03/19/23 12:06 Dose: 100 mg Documented By: WAYNE Enoxaparin Sodium (Enoxaparin Sodium 40 Mg/0.4 Ml Syringe) 40 mg SUBCUT Q24H [facility] Last Admin: 03/18/23 17:13 Dose: 40 mg Documented By: WAYNE Famotidine (Famotidine/Pf 20 Mg/2 Ml Vial) 20 mg IVPUSH DAILY [facility] Last Admin: 03/19/23 07:45 Dose: 20 mg Documented By: WAYNE Folic Acid (Folic Acid 1 Mg Tablet) 1 mg PO DAILY [facility] Last Admin: 03/19/23 07:45 Dose: 1 mg Documented By: WAYNE Lorazepam (Lorazepam 0.5 Mg Tablet) 0.5 mg PO ONCE ONE Stop: 03/19/23 16:10 Lorazepam (Lorazepam 0.5 Mg Tablet) 0.5 mg PO BEDTIME PRN PRN Reason: Sleep Nicotine (Nicotine 14 Mg Patch.Td24) 14 mg TRANSDERMA DAILY [facility] Last Admin: 03/19/23 07:45 Dose: 14 mg Documented By: WAYNE Ondansetron HCl (Ondansetron Hcl 4 Mg/2 Ml Vial) 4 mg IVPUSH Q8H PRN PRN Reason: Nausea and Vomiting Last Admin: 03/18/23 12:17 Dose: 4 mg Documented By: WAYNE Pharmacy Consult (Consult Rx Etoh Phenob Im/Po) 1 each MISCELLANE ONCE PRN; Protocol PRN Reason: Consult order Phenobarbital (Phenobarbital 15 Mg Tablet) 45 mg PO BID [facility]; Protocol Stop: 03/19/23 21:01 Last Admin: 03/19/23 07:45 Dose: 45 mg Documented By: WAYNE Phenobarbital (Phenobarbital 30 Mg Tablet) 30 mg PO BID [facility]; Protocol Stop: 03/21/23 21:01 Phenobarbital (Phenobarbital 30 Mg Tablet) 30 mg PO DAILY [facility]; Protocol Stop: 03/23/23 09:01 Sodium Chloride (0.9 % Sodium Chloride Flush 3 Ml Syringe) 3 ml IVFLUSH QSCTFT [facility] Last Admin: 03/19/23 07:46 Dose: 3 ml Documented By: WAYNE Thiamine HCl (Thiamine Hcl 100 Mg Tablet) 100 mg PO DAILY [facility] Last Admin: 03/19/23 07:45 Dose: 100 mg Documented By: WAYNE Labs 03/18/23 05:52 03/19/23 09:00 Labs: Laboratory Results - last 24 hr 03/19/23 09:00 Anion Gap 12 Estim Creat Clear Calc 131.3 Estimated GFR > 60 Random Glucose 124 H Calcium 9.2 Total Bilirubin 0.6 Direct Bilirubin 0.3 AST 139 H ALT 122 H Alkaline Phosphatase 105 Total Protein 7.0 Albumin 4.0 Assessment and Plan (1) Alcoholic intoxication: Status: Acute Plan 47-year-old male with history of alcohol dependence who was brought to the emergency department due to acute alcohol intoxication and SI with plan for detox but patient began to withdraw now being admitted for management of acute alcohol withdrawal Alcohol dependence with acute alcohol withdrawal phenobarbitol protocol initiated thiamine, folic acid supplementation addiction medicine consult - pt wants to stop drinking supportive care increasing tremors and anxiety ativan for anxiety SI Resolved s/p 1:1 sitter in the ED Care team eval when medically cleared Nicotine dependence NRT transaminitis Trending down secondary to etoh use trend DVT ppx - lovenox code status - full code attending - Dr. Trejo continue hospital stay for management of acute alcohol withdrawal requiring phenobarbital Time Spent With Patient Time: Total time managing care of this patient today ____ minutes. Quality Stroke Does the patient have a stroke diagnosis?: No VTE Prior VTE?: No VTE Risk Level:: Medical - moderate - high VTE Device Contraindication: N/A - Device Ordered VTE Drug Contraindication: N/A - Med Ordered
[2023-03-19] MEDS: Enoxaparin Sodium 40 MG/0.4 ML SYRINGE SUBCUT (16:24)
[2023-03-19] MEDS: LORazepam 0.5 MG TABLET PO ×2 (16:24→21:35)
[2023-03-19 19:31] VITALS: BP 131/86; PULSE 103; RESP 14; TEMP 36.8; O2SAT 97
[2023-03-19 23:48] VITALS: BP 139/95; PULSE 104; RESP 18; TEMP 36.7; O2SAT 99
[2023-03-20 03:08] VITALS: BP 142/94; PULSE 18; RESP 18; TEMP 36.6; O2SAT 99
[2023-03-20 07:56] VITALS: BP 126/87; PULSE 93; RESP 20; TEMP 36.4; O2SAT 98
[2023-03-20] MEDS: Nicotine 14 MG PATCH.TD24 TRANSDERMA (08:29)
[2023-03-20] MEDS: PHENobarbitaL 30 MG TABLET PO (08:30)
[2023-03-20] MEDS: Folic Acid 1 MG TABLET PO (08:30)
[2023-03-20] MEDS: Thiamine HCL 100 MG TABLET PO (08:31)
--- NOTE | 2023-03-20 10:37 | MHC.CM.PN ---
PT MEDICALLY CLEARED FOR D/C HOME SELF-CARE, FAMILY FOR TRANSPORT
--- NOTE | 2023-03-20 10:58 | MHC.RECOVRN ---
This leader writer met with patient to review plan at discharge. Thoroughly reviewed addiction/recovery supports, harm reduction. Reviewed medications for ETOH use, Information Systems Coordinator, safe use strategies, therapy, outpatient and inpatient levels of care for addiction. Pt encouraged to present as a Walk in or call to make appt at the [facility] if interested. Pt declined making appointment today. Pt verbalized understanding. Pt would like to consider options and will reach out to [facility] with any questions/concerns.
[2023-03-20] MEDS: LORazepam 0.5 MG TABLET PO (12:08)
== END 2023-03-20 13:54 | disposition home or self-care (01) | DRG 775 ==
LOC: HO.ED 07:19 → HO.EDOVER 16:30 → HO.IMC 19:37
PROVIDERS: Admitting Provider Physician Assistant Medical; Emergency Provider Emergency Medicine Emergency Medical Services; PCP Internal Medicine Medical Oncology; Visit Provider Nurse Practitioner Acute Care
DX: F10.239 Alcohol dependence with withdrawal, unspecified (principal); F10.229 Alcohol dependence with intoxication, unspecified; R45.851 Suicidal ideations; F17.210 Nicotine dependence, cigarettes, uncomplicated; Z71.6 Tobacco abuse counseling; Y90.8 Blood alcohol level of 240 mg/100 ml or more
CPT/HCPCS: 36415; 80048; 80076; 80307; 83735; 85025; 85027; 99285; J1650; J2060; J2405; J2560

== ENCOUNTER → 2023-03-17 16:11 | Outpatient (BNV) | payer OTHER, SELFPAY | PROVIDERS: Admitting Provider Physician Assistant Medical; Emergency Provider Emergency Medicine Emergency Medical Services; PCP Internal Medicine Medical Oncology; Visit Provider Physician Assistant Medical | DX: F10.929 Alcohol use, unspecified with intoxication, unspecified (principal) | CPT/HCPCS: 99223; 99232; 99239 ==

== ENCOUNTER 2023-03-28 14:26 | Outpatient (AMB) | payer OTHER, SELFPAY ==
--- NOTE | 2023-03-28 14:37 | A.OFFVIS_ITS ---
Intake Vital Signs 03/28/23 14:39 BP 110/68 Blood Pressure Location Lt brachial Position Sitting Pulse 8 L Pulse Oximetry (%) 97 Intake Visit Reasons: MAT Visit Allergies No Known Allergies Allergy (Verified 03/17/23 06:32) HPI MAT Visit HPI Details Patient presents for follow up of AUD Recently medically admitted with acute alcohol withdrawal and started on Naltrexoen PO Today patient presented to visit with his mother--challenging to have both in the room as they bickered and challenged what eachother was saying. This telegraphic typewriter repairer asked mother to wait in the waiting room and provided [facility] resources--mother very tearful and unsure of what to do. Patient very pressured and dismissive during visit. Does not feel he needs any support for his drinking, but open to resources if you have any . Very tangential, and elusive when answering questions. Unclear if he is taking Naltrexone. Reports 13 days of no alcohol. Has been drinking non alcohol containing beers since discharge. [facility] Medical History Alcohol dependence No known health problems Social History (Updated 03/17/23 @ 16:36 by JAVID Mary) Household Members: Family Household Members Other:: Parents Housing: House Do you presently have visiting nurse or other home services: No Unable to assess alcohol history related to: Unknown Alcohol intake: current Alcohol intake frequency: 3 or more drinks per day Patient Tobacco Use Status: Current everyday Tobacco user Tobacco use type: Cigarette Cigarette Packs Per Day: 1 Cigarettes Per Day: 20.0 Substance Use Type: Marijuana Advance Directives Date on File: 01/29/21 service: No Review of Systems Const Reports as per HPI and Reports no additional complaints Physical Exam Vital Signs: Last Vital Signs Pulse 8 L 03/28/23 14:39 BP 110/68 03/28/23 14:39 Pulse Ox 97 03/28/23 14:39 Const General: awake and poor hygiene Nutritional Appearance: thin Psych Appearance: disheveled Speech and movement: Pressured speech present Affect: Indifferent affect present Attitude: Guarded attititude/behavior present Thought process: Tangential thought process present Insight: Limited insight present (Psych) Judgement: Fair judgement present (Psych) Assessment & Plan Assessment & Plan (1) Alcohol use disorder, severe, dependence: Code(s): F10.20 - Alcohol dependence, uncomplicated Plan: * patient agreeable to follow up in 2 weeks * risk reduction discussion * agreeable to gabapentin to address anxiety Medications: New gabapentin 100 mg PO BID 20 caps 0RF Coding Level of Care Code Est Pt Level 4 (85099) Diagnoses Alcohol use disorder, severe, dependence F10.20
[2023-03-28 14:39] VITALS: BP 110/68; PULSE 8; O2SAT 97
== END 2023-03-28 14:59 | disposition home or self-care (01) ==
LOC: HO.HCC 14:26
PROVIDERS: PCP Internal Medicine Medical Oncology; Visit Provider Nurse Practitioner Psychiatric/Mental Health
DX: F10.20 Alcohol dependence, uncomplicated (principal)
CPT/HCPCS: 99214

== ENCOUNTER → 2023-03-28 14:26 | Outpatient (BNVA) | payer OTHER, SELFPAY | PROVIDERS: PCP Internal Medicine Medical Oncology; Visit Provider Nurse Practitioner Psychiatric/Mental Health | DX: F10.20 Alcohol dependence, uncomplicated (principal) | CPT/HCPCS: 99212 ==